=== PATIENT | male | born 1945 | race Caucasian/White ===

== ENCOUNTER 2018-07-15 20:30 | Emergency (ER) | payer MEDICARE, BC, SELFPAY ==
[2018-07-15] VITALS (34 sets, daily range): BP systolic 123–162; BP diastolic 77–105; PULSE 56–71; RESP 9–20; TEMP 36.6–36.7; O2SAT 93–100
--- NOTE | 2018-07-15 20:53 | ED.GENADUL_ITS ---
Discharge Plan Disposition Patient Disposition: HOME Condition: Stable Discharge Details Chief Complaint: Chest Pain Clinical Impression: Chest pain Reason For Visit: chest pressure Primary Care Provider: Jeremiah Sandoval ED Provider: Prieto Vasquez Home Meds and New Rx's Prescriptions: Continued atorvastatin [Lipitor] 20 MG tablet 20 mg PO DAILY RF: 0 hydrochlorothiazide 12.5 MG capsule 12.5 mg PO DAILY RF: 0 aspirin [Aspir-81] 81 MG tablet,delayed release (DR/EC) 81 mg PO HS RF: 0 pantoprazole 20 MG tablet,delayed release (DR/EC) 20 mg PO DAILY RF: 0 losartan 25 MG tablet 50 mg PO DAILY RF: 0 Lactobacillus acidophilus [Freeze Dried Acidophilus] 1 EACH capsule 1 tab PO DAILY RF: 0 Centrum Silver Men 1 EACH tablet 1 tab PO DAILY RF: 0 famotidine [Pepcid] 20 mg Tablet 20 mg PO PRN PRNRF: 0 Discharge Instructions Instructions: Chest Pain (ED) Additional Instructions: follow up with your primary care office within a week if you have worsening pain, have nausea/vomit or difficulty breathing return to the emergency department Medical Decision Making 72 yo male who comes in with chief complaint of chest burning in left chest that started around 3pm today after eating ice cream. Took pepto and feels better now. Denies any hx of heart disease, no radiation of pain or pain with exertion. HAs no leg swelling, jvd or calf pain. No tachycardia or hypoxia or findings suggestive of a DVT so doubt PE at this time. Symptoms don't seem typical of acs but given age and hx of htn/hld and former smoker will obtain ecg and troponin. No tearing back pain and normal vascular exam so doubt dissection. No cough/fever to suggest pna and normal lung sounds with no pain with deep breaths so doubt ptx and do not feel cxr indicated pt's initial labs unremarkable, remains pain free and hd stable. HAd discussion with pt about admit for observation vs second troponin and f/u with pcp and pt made informed decision of obtaining second troponin. Pt remains pain free and second troponin negative. He will f/u with pcp and return here sooner if pain worsens or if he has radiation of pain Differential Diagnosis gastritis, acs, pe, gerd Lab Data Lab results reviewed: Yes I reviewed the patient's lab results. ECG Data Attestation: I personally reviewed and interpreted this ECG (s) as follows: Prior ECG tracings: not available for review Interpretation: sinus rhythm, rate of 62, pr 178, qtc 392, no acute ischemic st t wave changes HPI General Mode of arrival: ambulatory . Date/Time Provider Initiated Documentation: 07/15/18 20:39 . Limitations to Documentation: no limitations . Information obtained by: patient . History of Present Illness 72 year old M presents to the emergency department with the chief complaint of chest pain, described as moderate, Quality is described as aching, and is localized to the chest. Patient reports no radiation. Patient started experiencing this hour(s) (5) and it has been constant. other things that improve symptom(s), (pepto) No exacerbating factors reported . Patient notes no other symptoms.. Patient did receive the following treatments prior to arrival, none Related Data Home Medications Medication Instructions Recorded Confirmed atorvastatin [Lipitor] 20 mg PO DAILY 02/26/15 07/15/18 aspirin [Aspir-81] 81 mg PO HS 06/12/16 07/15/18 Centrum Silver Men 1 tab PO DAILY 09/03/16 07/15/18 Lactobacillus acidophilus [Freeze 1 tab PO DAILY 09/03/16 07/15/18 Dried Acidophilus] losartan 50 mg PO DAILY 09/03/16 07/15/18 pantoprazole 20 mg PO DAILY 09/03/16 07/15/18 hydrochlorothiazide 12.5 mg PO DAILY 11/29/16 07/15/18 famotidine [Pepcid] 20 mg PO PRN PRN 07/15/18 07/15/18 Allergies Allergy/AdvReac Type Severity Reaction Status Date / Time lisinopril AdvReac Intermediate Other (See Verified 08/12/17 20:26 Comment) General Stated Complaint: Chest Pain ANISA: 2 Review of Systems Review of Systems All systems reviewed & are unremarkable except as noted in HPI and below Constitutional Denies chills and Denies fever(s) Eyes Denies loss of vision ENT Denies change in voice Cardiovascular Denies dyspnea Respiratory Denies dyspnea Gastrointestinal Denies abdominal pain, Denies nausea and Denies vomiting Genitourinary Denies dysuria Musculoskeletal Denies joint swelling Integumentary/Breasts Denies rash Neurologic Denies loss of vision [facility] Medical History Abdominal pain Adrenal adenoma Eczema Fatigue GERD (gastroesophageal reflux disease) HTN (hypertension) Hypercholesterolemia Rotator cuff syndrome Skin lesion of face Surgical History Colonoscopy - MAC (09/05/17) Tonsillectomy Vasectomy ruptured achilles Social History Smoking/Tobacco Use Status: Former Tobacco Use Exam Const General: no acute distress Orientation: alert HENMT Head: normal to inspection Ears: external ears normal General nose exam: external nose normal Mouth: moist mucous membranes Eyes General: appearance normal, both eyes and all related structures Neck Neck: normal visual inspection Resp Effort & Inspection: normal respiratory effort and able to speak in complete sentences Cardio Rate: regular rate Skin General skin exam: no rashes or lesions noted Neuro General: alert and oriented x3 Extrem General: normal to inspection Psych Mental Status: mental status grossly normal Course Vital Signs Temperature 36.6 C 07/15/18 20:42 Pulse 68 07/15/18 20:42 Respiratory Rate 16 07/15/18 20:42 Blood Pressure 157/96 H 07/15/18 20:42 Pulse Oximetry 99 07/15/18 20:42 Temperature 36.6 C 07/15/18 20:42 Temperature Source Temporal Artery Scan 07/15/18 20:42 Pulse 68 07/15/18 20:42 Respiratory Rate 16 07/15/18 20:42 Blood Pressure 157/96 H 07/15/18 20:42 Pulse Oximetry 99 07/15/18 20:42 Oxygen Delivery Method Room Air 07/15/18 20:42 Oxygen Flow Rate 0 07/15/18 20:42 Pain Level 4 07/15/18 20:42
[2018-07-15 21:22] LABS: Abs Immature Grans 0.03 k/cumm (0.0-0.09); Absolute Basophil Count 0.03 k/cumm (0.0-0.2); Absolute Eosinophil Count 0.29 k/cumm (0.0-0.7); Absolute Lymphocyte Count 2.32 k/cumm (1.2-3.4); Absolute Monocyte Count 0.86 k/cumm (0.11-0.7); Absolute Neutrophil Count 4.91 k/cumm (1.2-6.7); Basophils % 0.4; Eosinophils % 3.4; HCT 43.1 % (40.0-50.0); HGB 15.4 g/dL (13.5-17.5); Immature Grans % 0.4; Lymphocytes % 27.5; Mean Corp. HGB Concentration 35.7 g/dL (32.0-36.0); Mean Corpuscular Hemoglobin 32.9 pg (27.0-33.0); Mean Corpuscular Volume 92.1 fL (80-95); Mean Platelet Volume 10.4 fL (8.0-11.0); Monocytes % 10.2; Neutrophils % 58.1; Platelet Count 196 x1000/uL (130-400); RBC 4.68 m/cumm (4.50-6.00); RBC Distribution Width 12.5 % (11.8-14.1); White Blood Cell Count 8.44 k/cumm (4.4-10.8)
[2018-07-15 21:37] LABS: PTT Activated 23.6 sec (21.0-31.4); Prothrombin Time 9.8 sec (9.3-11.0)
[2018-07-15 21:39] LABS: ALT 52 U/L (12-78); AST 25 U/L (15-37); Albumin 3.7 g/dL (3.4-5.0); Alkaline Phosphatase 69 U/L (46-116); BUN 22 mg/dL (7-18); Bilirubin, Total 0.5 mg/dL (0.2-1.0); CREATININE 1.08 mg/dL (0.70-1.30); Calcium 9.3 mg/dL (8.5-10.1); Chloride 103 mmol/L (98-107); Glucose 106 mg/dL (70-100); Sodium 140 mmol/L (136-145); Total Protein 7.4 g/dL (6.4-8.2); Troponin I 0.03 ng/mL (0.00-0.06)
[2018-07-15] MEDS: Aspirin 81 MG CHEW 324 MG CH (22:07)
[2018-07-15 23:33] LABS: Troponin I < 0.02 ng/mL (0.00-0.06)
--- NOTE | 2018-07-19 09:28 | PDOC.ERCMPRO ---
Care Management Progress Note /-Dr. Vasquez requested PCP f/u appt within one week for chest pain. Dr. Sandoval PCP. [facility] faxed back, scheduled patient for 07/21/18.
--- NOTE | 2018-07-19 09:29 | CMPROGNOTE_ITS ---
Care Management Progress Note /-Dr. Vasquez requested PCP f/u appt within one week for chest pain. Dr. Sandoval PCP. [facility] faxed back, scheduled patient for 07/21/18.
== END 2018-07-15 23:56 | disposition home or self-care (01) ==
PROVIDERS: Emergency Provider Emergency Medicine; PCP Internal Medicine
DX: R07.9 Chest pain, unspecified (principal); I10 Essential (primary) hypertension
CPT/HCPCS: 36415; 80053; 93005; 99284; 83735; 84484; 85025; 85610; 85730; 93010; 99283

== ENCOUNTER 2018-07-21 18:54 | Emergency (ER) | payer MEDICARE, BC, SELFPAY ==
[2018-07-21 19:03] VITALS: BP 152/89; PULSE 68; RESP 20; TEMP 36.8; O2SAT 98
[2018-07-21 19:10] VITALS: RESP 18
--- NOTE | 2018-07-21 19:14 | DI.RAD_ITS ---
SYMPTOM/DIAGNOSIS: CHEST PAIN PA AND LATERAL CHEST: Comparison is made with 08/12/17. Heart size and pulmonary vasculature are within normal limits. The lungs are clear. No effusions or pneumothoraces are identified. No acute abnormalities are seen in the bones. IMPRESSION: No acute pulmonary process.
[2018-07-21 19:27] LABS: Abs Immature Grans 0.01 k/cumm (0.0-0.09); Absolute Basophil Count 0.02 k/cumm (0.0-0.2); Absolute Eosinophil Count 0.32 k/cumm (0.0-0.7); Absolute Lymphocyte Count 2.26 k/cumm (1.2-3.4); Absolute Monocyte Count 0.91 k/cumm (0.11-0.7); Absolute Neutrophil Count 4.06 k/cumm (1.2-6.7); Basophils % 0.3; Eosinophils % 4.2; HCT 42.1 % (40.0-50.0); HGB 15.2 g/dL (13.5-17.5); Immature Grans % 0.1; Lymphocytes % 29.8; Mean Corp. HGB Concentration 36.1 g/dL (32.0-36.0); Mean Corpuscular Volume 91.5 fL (80-95); Mean Platelet Volume 10.7 fL (8.0-11.0); Neutrophils % 53.6; Platelet Count 202 x1000/uL (130-400); RBC Distribution Width 12.3 % (11.8-14.1); White Blood Cell Count 7.58 k/cumm (4.4-10.8)
[2018-07-21 19:45] LABS: ALT 45 U/L (12-78); AST 19 U/L (15-37); Albumin 3.8 g/dL (3.4-5.0); Alkaline Phosphatase 72 U/L (46-116); Anion Gap 7.9 mmol/L (3-11); BUN 24 mg/dL (7-18); Bilirubin, Total 0.4 mg/dL (0.2-1.0); CO2 29.1 mmol/L (21.0-32.0); CREATININE 1.13 mg/dL (0.70-1.30); Calcium 9.1 mg/dL (8.5-10.1); Chloride 103 mmol/L (98-107); Glucose 97 mg/dL (70-100); NT-proBNP 49 pg/mL; Potassium 3.5 mmol/L (3.5-5.1); Sodium 140 mmol/L (136-145); Total Protein 7.7 g/dL (6.4-8.2); Troponin I < 0.02 ng/mL (0.00-0.06)
--- NOTE | 2018-07-21 19:45 | ED.GENADUL_ITS ---
Discharge Plan Disposition Patient Disposition: HOME Condition: Improving Discharge Details Chief Complaint: Chest Pain Clinical Impression: Chest pain Primary Care Provider: Jeremiah Sandoval ED Provider: Yon Sam Home Meds and New Rx's Prescriptions: Continued atorvastatin [Lipitor] 20 MG tablet 20 mg PO DAILY RF: 0 hydrochlorothiazide 12.5 MG capsule 12.5 mg PO DAILY RF: 0 aspirin [Aspir-81] 81 MG tablet,delayed release (DR/EC) 81 mg PO HS RF: 0 pantoprazole 20 MG tablet,delayed release (DR/EC) 20 mg PO DAILY RF: 0 losartan 25 MG tablet 50 mg PO DAILY RF: 0 Lactobacillus acidophilus [Freeze Dried Acidophilus] 1 EACH capsule 1 tab PO DAILY PRNRF: 0 Centrum Silver Men 1 EACH tablet 1 tab PO DAILY RF: 0 Changed famotidine [Pepcid] 20 mg Tablet 20 mg PO BID 14 Days Qty: 28 RF: 0 Discharge Instructions Instructions: Chest Pain (ED) Additional Instructions: Please follow-up with your primary care provider for reassessment and for arrangement of outpatient stress testing as previously discussed this morning at your visit. Please take the Pepcid twice daily for the next couple weeks and also see if this helps your symptoms. Feel free to return the emergency department for any new or worsening symptoms as needed. Referrals: Jeremiah Sandoval MD [Primary Care Provider] - (As previously arranged for reassessment) Medical Decision Making Patient presenting the emergency department for chief complaint of chest pain. He states this occurred after dinner while scooping some snow. He states that this did occur a couple days ago which she was seen in the emergency department and evaluated and informed to follow-up with his primary care provider. Patient was seen by primary care provider this morning and were in the process of arranging some further abdominal imaging workup along with a cardiac stress test. Patient does state that his stomach felt upset all day prior to his discomfort. He states normal bowel function, denies fever chills. Physical exam shows normal cardiac exam, no respiratory findings, and does show positive epigastric left upper quadrant tenderness. Patient did state that he took Pepcid approximately an hour prior to arrival and now has full resolution of sy mptoms. Given patient's age, high cholesterol, former smoker there is concern for cardiac source of plan to check cardiac labs EKG and chest x-ray but more suspicious of possible GI nature given upset stomach all day. Plan to perform CT with oral contrast of abdomen. Patient does state for a while now he has had episodes of severe sharp abdominal pain that is in the left upper quadrant when he gets them. Patient is otherwise stable and denies any need for pain medication at this time. Labs were reviewed and are unremarkable showing no anemia, no acute electrolyte abnormalities, nondiagnostic. Patient has negative BNP, negative initial troponin. Review of CT scan and chest x-ray show no acute findings. Patient was informed of some renal and adrenal cyst that were noted on CT scan that do not look acute. Patient was agreeable to 3-hour troponin. Patient still denies any pain or discomfort at this time. Review of second troponin is also negative for any elevation. Patient elisabeth ssessed and continues to state no no discomfort at this time. There is high consideration of this possibly being gastric ulcer versus GERD type symptoms but patient is currently on Protonix. If symptoms continue there may be consideration of upper GI study to look for esophagitis ulceration or sphincter dysfunction. given that Pepcid relieved his symptoms he was encouraged to take Pepcid twice daily for the next couple weeks to see if this helps while pending his stress testing which is already being arranged by primary care. After discussion of diagnosis and plan of care patient has no further needs, questions, or concerns and states clear understanding to return to the emergency department for any worsening symptoms. ECG Data Attestation: I personally reviewed and interpreted this ECG (s) as follows: Prior ECG tracings: available for review Interpretation: EKG reviewed with Dr. Farhana Canales. EKG shows rate of 65, sinus rhythm, normal access, no acute ischemic ST changes, no remarkable changes compared to previous EKG. HPI General Mode of arrival: ambulatory . Date/Time Provider Initiated Documentation: 07/21/18 19:12 . Limitations to Documentation: no limitations . Information obtained by: patient and RN notes reviewed . History of Present Illness 72 year old M presents to the emergency department with the chief complaint of chest pain, described as moderate, Quality is described as sharp and other (denies current pain), and is localized to the chest. Patient started experiencing this hour(s) (2) and it has been now resolved. Medication improves symptom(s), (Pepcid) Patient notes no other symptoms.. Patient did receive the following treatments prior to arrival, other (Pepcid) Related Data Home Medications Medication Instructions Recorded Confirmed atorvastatin [Lipitor] 20 mg PO DAILY 02/26/15 07/21/18 aspirin [Aspir-81] 81 mg PO HS 06/12/16 07/21/18 Centrum Silver Men 1 tab PO DAILY 09/03/16 07/21/18 Lactobacillus acidophilus [Freeze 1 tab PO DAILY PRN 09/03/16 07/21/18 Dried Acidophilus] losartan 50 mg PO DAILY 09/03/16 07/21/18 pantoprazole 20 mg PO DAILY 09/03/16 07/21/18 hydrochlorothiazide 12.5 mg PO DAILY 11/29/16 07/21/18 famotidine [Pepcid] 20 mg PO BID 14 Days #28 tab 07/21/18 Previous Rx's Medication Instructions Recorded famotidine [Pepcid] 20 mg PO BID 14 Days #28 tab 07/21/18 Allergies Allergy/AdvReac Type Severity Reaction Status Date / Time lisinopril AdvReac Intermediate Other (See Verified 07/21/18 19:08 Comment) General Stated Complaint: Chest Pain ANISA: 2 Review of Systems Constitutional Denies chills, Denies fever(s) and Denies malaise Cardiovascular Reports as per HPI, Reports chest pain, Denies chest pain with activity, Denies syncope, Denies irregular heart rhythm, Denies palpitations and Denies dyspnea Respiratory Denies dyspnea Gastrointestinal Reports abdominal pain, Denies nausea and Denies vomiting Neurologic Denies syncope Psychiatric Denies anxiety Endocrine Denies palpitations PFSH Medical History Abdominal pain Adrenal adenoma Eczema Fatigue GERD (gastroesophageal reflux disease) HTN (hypertension) Hypercholesterolemia Rotator cuff syndrome Skin lesion of face Surgical History Colonoscopy - MAC (09/05/17) Tonsillectomy Vasectomy ruptured achilles Social History Smoking/Tobacco Use Status: Former Tobacco Use Exam Const General: cooperative, healthy appearing, comfortable, no acute distress, not diaphoretic and not ill appearing Nutritional Appearance: average body habitus Orientation: alert, awake and oriented x3 Limitations: mental status not altered Neck Neck: normal visual inspection, full ROM, trachea midline, supple and no anterior neck swelling Thyroid: thyroid normal Carotids: normal carotid upstroke and no bruits Chest Chest: normal inspection of the chest Resp Effort & Inspection: normal respiratory effort and able to speak in complete sentences Auscultation: clear to auscultation bilaterally Cardio Jugular venous pressure: no JVD Palpation: normal PMI Rate: regular rate Rhythm: regular rhythm Heart Sounds: S1 normal, S2 normal, no click, no gallops, no murmurs and no rubs Bruits: no abdominal aortic bruits and no carotid bruits Pulses: radial pulses present bilaterally 2+ GI Inspection: normal to inspection Palpation: soft, no aortic enlargement, no pulsatile masses and tender in the epigastrum and in the LUQ Auscultation: normal bowel sounds Skin General skin exam: no rashes or lesions noted Neuro General: alert, awake, oriented x3, tone normal and moves all extremities Course Vital Signs Temperature 36.8 C 07/21/18 19:03 Pulse 68 07/21/18 19:03 Respiratory Rate 20 07/21/18 19:03 Blood Pressure 152/89 H 07/21/18 19:03 Pulse Oximetry 98 07/21/18 19:03 Temperature 36.8 C 07/21/18 19:03 Temperature Source Temporal Artery Scan 07/21/18 19:03 Pulse 68 07/21/18 19:03 Respiratory Rate 18 07/21/18 19:10 Respiratory Effort Non-Labored 07/21/18 19:10 Respiratory Depth Normal 07/21/18 19:10 Respiratory Pattern Normal 07/21/18 19:10 Blood Pressure 152/89 H 07/21/18 19:03 Blood Pressure Position Supine 07/21/18 19:03 Pulse Oximetry 98 07/21/18 19:03 Oxygen Delivery Method Room Air 07/21/18 19:03 Oxygen Flow Rate 0 07/21/18 19:03 Pain Level 4 07/21/18 19:10 Lab/Test Results Lab/Test Results: Laboratory Tests Range/Units 07/21/18 19:20 WBC (4.4-10.8) k/cumm 7.58 RBC (4.50-6.00) m/cumm 4.60 Hgb (13.5-17.5) g/dL 15.2 Hct (40.0-50.0) % 42.1 MCV (80-95) fL 91.5 MCH (27.0-33.0) pg 33.0 MCHC (32.0-36.0) g/dL 36.1 H RDW (11.8-14.1) % 12.3 Plt Count (130-400) x1000/uL 202 MPV (8.0-11.0) fL 10.7 Immature Gran % 0.1 Neutrophils % 53.6 Lymphocytes % 29.8 Monocytes % 12.0 Eosinophils % 4.2 Basophils % 0.3 Absolute Neutrophils (1.2-6.7) k/cumm 4.06 Absolute Lymphocytes (1.2-3.4) k/cumm 2.26 Absolute Monocytes (0.11-0.7) k/cumm 0.91 H Absolute Eosinophils (0.0-0.7) k/cumm 0.32 Absolute Basophils (0.0-0.2) k/cumm 0.02
--- NOTE | 2018-07-21 19:45 | DI.CT_ITS ---
SYMPTOM/DIAGNOSIS: ABD PAIN, EPIGASTRIC AND LUQ ABDOMEN AND PELVIC CT: Comparison is made with 08/15/17. The visualized lung bases are clear. The liver is normal in size. There are again seen several hypodense lesions within the liver. They are too small for further characterization but likely reflect small cysts. No suspicious hepatic mass is seen. The gallbladder is negative. No biliary ductal dilatation. The portal and superior mesenteric veins are patent. The pancreas, spleen and left adrenal gland are unremarkable. There is again seen a right adrenal nodule which is unchanged. The kidneys show normal and symmetric enhancement. There are bilateral renal cysts. No suspicious solid renal masses or obstruction is seen. The urinary bladder is intact. The reproductive organs are grossly unremarkable. The bowel shows no evidence of obstruction or inflammation. No findings to suggest an acute appendicitis are seen. The abdominal aorta is of normal caliber with mild atherosclerosis. No aneurysmal dilatation is present. No significant abdominal or pelvic adenopathy, ascites or pneumoperitoneum is seen. Degenerative changes are present in the spine. IMPRESSION: No evidence of an acute abdomen.
[2018-07-21 20:04] VITALS: BP 151/106; PULSE 64; RESP 16; O2SAT 96
--- NOTE | 2018-07-21 20:05 | NUR.NOTE ---
patient drinking po contrast , pain decreased and tolwerating cointrast Nursing Note:
[2018-07-21] MEDS: Omnipaque 350 MG/ML 50 ML BTL PO (21:13)
[2018-07-21] MEDS: Omnipaque 350 MG/ML 100 ML BTL IJ (21:13)
[2018-07-21] MEDS: Breeza Beverage 473 ML BTL PO (21:14)
--- NOTE | 2018-07-21 21:40 | DI.VRAD_ITS ---
EXAM: XR Chest, 2 Views EXAM DATE/TIME: 07/21/2018 9:09 PM CLINICAL HISTORY: 72 years old, male; Pain; Chest pain; Right-sided chest pain TECHNIQUE: XR of the chest, 2 views. COMPARISON: CR CHEST 2 VIEWS PA,LAT 08/12/2017 9:14 PM FINDINGS: Lungs: Unremarkable. No consolidation. Pleural space: Unremarkable. No pleural effusion. No pneumothorax. Heart/Mediastinum: Unremarkable. No cardiomegaly. Bones/joints: Osseous degenerative changes commensurate with age. No acute fracture. IMPRESSION: No acute findings. Dictated and Authenticated by: Mehul Suero MD. Ordering:CHEIKH Marvin MD
--- NOTE | 2018-07-21 21:49 | DI.VRAD_ITS ---
EXAM: CT Abdomen and Pelvis With Contrast EXAM DATE/TIME: 07/21/2018 7:46 PM CLINICAL HISTORY: 72 years old, male; Pain; Abdominal pain TECHNIQUE: Axial computed tomography images of the abdomen and pelvis with intravenous contrast. Coronal and sagittal reformatted images were created and reviewed. COMPARISON: CT ABD PELVIS WITH CONTRAST 08/15/2017 11:00 AM FINDINGS: Lower thorax: Mild dependent atelectasis in the lung bases. No focal consolidation. ABDOMEN: Liver: Likely small hepatic cysts noted. No discrete mass. Gallbladder and bile ducts: Normal. No calcified stones. No ductal dilation. Pancreas: Normal. No ductal dilation. Spleen: Normal. No splenomegaly. Adrenals: 1.9 cm slightly heterogeneously enhancing right adrenal nodule, unchanged from multiple priors, likely an adenoma. Otherwise unremarkable. Kidneys and ureters: Multiple bilateral renal cysts are noted, measuring up to 4.5 cm at the lower pole on the left. No hydronephrosis or urinary tract stones. Stomach and bowel: Normal. No obstruction. No mucosal thickening. Appendix: No evidence of appendicitis. PELVIS: Bladder: Unremarkable as visualized. Reproductive: Unremarkable as visualized. ABDOMEN and PELVIS: Intraperitoneal space: Normal. No free air. No significant fluid collection. Bones/joints: No acute fractures are seen. Old right rib fractures are noted. Mild degenerative disc are present in the spine. Soft tissues: Unremarkable. Vasculature: Moderate vascular calcifications are present. There is no abdominal aortic aneurysm. Lymph nodes: Normal. No enlarged lymph nodes. IMPRESSION: No evident acute intra-abdominal process. Stable chronic findings as above. Dictated and Authenticated by: Mehul Suero MD. Ordering:CHEIKH Marvin MD
--- NOTE | 2018-07-21 22:05 | NUR.NOTE ---
patient ambulated to restroom steadily Nursing Note:
[2018-07-21 22:08] VITALS: BP 150/97; PULSE 64; RESP 16; TEMP 36.7; O2SAT 98
[2018-07-21 22:59] LABS: Troponin I < 0.02 ng/mL (0.00-0.06)
--- NOTE | 2018-07-21 23:25 | NUR.NOTE ---
patient's IV dc'd, patient home with Nursing Note:
== END 2018-07-21 23:24 | disposition home or self-care (01) ==
PROVIDERS: Emergency Provider Nurse Practitioner Family; PCP Internal Medicine
DX: R07.9 Chest pain, unspecified (principal); I10 Essential (primary) hypertension
CPT/HCPCS: 36415; 80053; 93005; 99285; 71046; 74177; 83735; 83880; 84484; 85025; 93010; J3490; Q9967

== ENCOUNTER 2018-07-26 12:21 | Outpatient (REF) | payer MEDICARE, BC, SELFPAY ==
[2018-07-26 13:14] LABS: TSH (W/Ref FT4) 3.47 uIU/mL (0.358-3.74)
== END 2018-07-26 12:41 ==
LOC: NCHCN 12:21
PROVIDERS: PCP Internal Medicine; Visit Provider Family Medicine
DX: R53.83 Other fatigue (principal)
CPT/HCPCS: 84443

== ENCOUNTER 2018-08-01 02:47 | Outpatient (CLI) | payer MEDICARE, BC, SELFPAY ==
--- NOTE | 2018-08-01 | PFT_ITS ---
PULMONARY FUNCTION TEST REPORT Patient identification - Kobe Calvin DATE OF - 45 DATE OF SERVICE - August 01, 2018 REQUESTING PROVIDER - Letty Negrete M.D. INTERPRETATION OF STUDY Spirometry shows likely no evidence of obstructive airways disease. The pre bronchodilator effort was poor. Therefore, the results are very questionable. There was no bronchodilator response. LUNG VOLUMES - Incomplete testing. The patient was unable to carry out plethysmography maneuver. DIFFUSION CAPACITY- Normal. AIRWAY RESISTANCE - Normal. IMPRESSION Likely overall normal pulmonary function study. The prebronchodilator effort was poor and uninterpretable. The post bronchodilator spirometry is normal. Clinical correlation recommended. The patient had previous PFT done on 08/01/18, but because of the pre bronchodilator spirometry being on the more recent one, a very poor effort, true comparison is not possible. Maddi Sanderson M.D. ENOCH/emma T - 08/02/2018
[2018-08-01] MEDS: Albuterol HFA 18 GM 200 PUFF INH IH (13:52)
[2018-08-01] MEDS: Inhaler, Assist Device 1 EACH MC (13:52)
== END 2018-08-01 03:07 ==
PROVIDERS: PCP Internal Medicine; Visit Provider Urology
DX: R06.02 Shortness of breath (principal); R06.09 Other forms of dyspnea
CPT/HCPCS: 94060; 94729

== ENCOUNTER → 2018-09-01 12:36 | Outpatient (BNVA) | payer MEDICARE, BC, SELFPAY | PROVIDERS: PCP Internal Medicine; Referring Provider Internal Medicine; Visit Provider Physical Therapy Assistant | DX: K21.9 Gastro-esophageal reflux disease without esophagitis (principal) | CPT/HCPCS: 99212; 99213 ==

== ENCOUNTER 2018-10-02 06:17 | Day surgery (SDC) | payer MEDICARE, BC, SELFPAY ==
--- NOTE | 2018-09-04 06:56 | W.PM.ENDDOP ---
Date of service: 09/04/18 Endoscopy Report DATE OF PROCEDURE: 09/04/18 PRE-OP DIAGNOSIS: GERD PROCEDURE: EGD with biopsies SURGEON: Geraldine Leon ANESTHESIA: MAC COMPLICATIONS: None DISPOSITION: no change INDICATIONS: Mr. Calvin is a pleasant 72 year old male who was seen in the office for an EGD. The patient has been on omeprazole 20 mg daily for known GERD. He recently had to increase to 40 mg daily and that has helped his symptoms. Risks, benefits and complications have been reviewed. Complications include but are not limited to bleeding, pain, perforation, sore throat, aspiration, and adverse reaction to the medications. Questions were entertained and answered to their satisfaction and they wished to proceed. No guarantees were given or implied. PROCEDURE DESCRIPTION: After informed consent was obtained the patient was take to the procedure room and placed in a supine position. Monitors were applied and a time out was done. The patients name, date of , procedure type, allergies to medications and metal in their body was reviewed. A bite block was placed and the patient was sedated. Once sedated and comfortable the gastroscope was advanced through the oropharynx which was grossly normal into the esophagus. The proximal and mid-esophagus were []. In the distal esophagus there was [] noted. The scope was advanced into the stomach and through the pylorus into the 3rd portion of the duodenum. The duodenum was noted to be []. Biopsies were done []. The scope was retracted back into the stomach and biopsies were done to rule out H. pylori. There were [] ulcers. The scope was retroflexed. The cardia and fundus were noted to be normal. There [] a hiatal hernia noted. The scope was retracted back into the esophagus and biopsies were done of the GE junction to rule out Carlson's. The Z line was regular. The GE junction was at [] cm. The scope was removed and the patient was woken up and taken back to [facility] in stable condition. Follow up:
--- NOTE | 2018-09-04 07:00 | W.PM.DSUDISC ---
Discharge Plan Disposition Patient Disposition: HOME Condition: Good Discharge Details Reason For Visit: GERD Attending Provider: Geraldine Leon Primary Care Provider: Jeremiah Sandoval Home Meds and New Rx's Prescriptions: No Action famotidine [Pepcid] 20 mg tablet 40 mg PO BID RF: 0 atorvastatin [Lipitor] 20 MG tablet 20 mg PO DAILY RF: 0 hydrochlorothiazide 12.5 MG capsule 12.5 mg PO DAILY RF: 0 aspirin [Aspir-81] 81 MG tablet,delayed release (DR/EC) 81 mg PO HS RF: 0 losartan 25 MG tablet 50 mg PO DAILY RF: 0 Centrum Silver Men 1 EACH tablet 1 tab PO DAILY RF: 0 pantoprazole 20 mg tablet,delayed release (DR/EC) 40 mg PO DAILY RF: 0 Discharge Instructions Instructions: Upper Endoscopy (DC) Additional Instructions: Findings: Follow up: Please call if you develop: fevers >101.5 Nausea or Vomiting Abdominal pain that is not transient DAY SURGERY UNIT POST COLONOSCOPY INSTRUCTIONS 1. Because there will be medication in your system for the next 24 hours, you may feel a little sleepy. Your coordination will be affected. Therefore: a. Do not drive or operate dangerous equipment for 24 hours. b. Do not drink alcohol beverages for 24 hours (not even beer). c. Plan to go home and rest for the day. 2. Generally there are no restrictions on your activity after a day or so has gone by, but you may feel a bit fatigued for a few days. 3 After you arrive home you may have a light meal and return to a normal diet as you can tolerate it without feeling sick to your stomach. 4. After surgery, you may feel pain or discomfort. This should be only transient, but if it persists please contact your doctor. 5. If there are any questions regarding the findings of your procedure, please feel free to contact your doctor. 6. If you are unable to contact your doctor with a problem, contact the hospital at [phone]. 7. Continue all your regular medications unless directed otherwise. I understand the above instructions and have no questions. Signature of Patient or Responsible Adult Escort Date/Time Name of Responsible Adult Escort Signature of Nurse Date/Time Activity:: Activity as Tolerated Diet:: As Tolerated DS: Diagnosis Discharge Diagnosis (1) H/O esophagogastroduodenoscopy: Status: Chronic (2) GERD (gastroesophageal reflux disease): Status: Chronic
[2018-10-02 06:32] VITALS: BP 122/87; PULSE 58; RESP 16; TEMP 35.8; O2SAT 95
--- NOTE | 2018-10-02 06:45 | ENDO_ITS ---
Date of service: 10/02/18 Time of Service: 07:30 Endoscopy Report DATE OF PROCEDURE: 10/02/18 PRE-OP DIAGNOSIS: Hx of GERD POST-OP DIAGNOSIS: other (Duodenitis, gastritis, gastric polyps and esophagitis) PROCEDURE: EGD with biopsies SURGEON: Geraldine Leon ANESTHESIA: other (General/ ASA / Karla Guillory, DIRECTOR OF MANUFACTURING OPERATIONS) ESTIMATED BLOOD LOSS: 5 PATHOLOGY: other (duodenal bx, gastric antrum bx, gastric polyps bx, esophageal bx) COMPLICATIONS: None DISPOSITION: same day INDICATIONS: Mr. Calvin is a 72 year old with a history of GERD with breakthrough symptoms who is here for an EGD. Risks, benefits and complications have been reviewed. Complications include but are not limited to bleeding, pain, perforation, sore throat, aspiration, and adverse reaction to the medications. Questions were entertained and answered to their satisfaction and they wished to proceed. No guarantees were given or implied. PROCEDURE START TIME: 07:31 PROCEDURE END TIME: 07:41 FINDINGS: Inflammation of the duodenum, stomach and esophagus benign appearing gastric polyps in the fundus PROCEDURE DESCRIPTION: After informed consent was obtained the patient was take to the procedure room and placed in a supine position. Monitors were applied and a time out was done. The patients name, date of , procedure type, allergies to medications and metal in their body was reviewed. Fire risk was assessed. A bite block was placed and the patient was sedated. Once sedated and comfortable the gastroscope was advanced through the oropharynx which was grossly normal into the esophagus. The proximal and mid- esophagus were normal. In the distal esophagus there was some inflammation noted noted. The scope was advanced into the stomach and through the pylorus into the 3rd portion of the duodenum. The duodenum was noted to have some mild inflammation in the first portion. No ulcers were noted. Biopsies were done. The scope was retracted back into the stomach and biopsies were done to rule out H. pylori. There were no ulcers. There was moderate inflammation. The scope was retroflexed. There were a few benign appearing polyps in the cardia and fundus. Biopsies of the polyps were done. There was no hiatal hernia noted. The scope was retracted back into the esophagus and biopsies were done of the GE junction to rule out Carlson's. The Z line was irregular. The GE junction was at 42 cm. The scope was removed and the patient was woken up and taken back to [facility] in stable condition. Follow up: 2-3 weeks in the office
--- NOTE | 2018-10-02 06:46 | PDOC.DSDIS_ITS ---
Discharge Plan Disposition Patient Disposition: HOME Condition: Good Discharge Details Reason For Visit: GERD Attending Provider: Geraldine Castellanos Primary Care Provider: Jeremiah Sandoval Home Meds and New Rx's Prescriptions: New famotidine [Pepcid] 40 mg tablet 40 mg PO QHS Qty: 30 RF: 0 Continued atorvastatin [Lipitor] 20 MG tablet 20 mg PO DAILY RF: 0 hydrochlorothiazide 12.5 MG capsule 12.5 mg PO DAILY RF: 0 aspirin [Aspir-81] 81 MG tablet,delayed release (DR/EC) 81 mg PO HS RF: 0 losartan 25 MG tablet 50 mg PO DAILY RF: 0 Centrum Silver Men 1 EACH tablet 1 tab PO DAILY RF: 0 Changed pantoprazole 20 mg tablet,delayed release (DR/EC) 40 mg PO QAM Qty: 30 RF: 0 Discontinued famotidine [Pepcid] 20 mg tablet 40 mg PO BID RF: 0 Discharge Instructions Instructions: Upper Endoscopy (DC), Duodenitis (DC), Diet for Stomach Ulcers and Gastritis (GEN), Gastric Polyps (DC), Gastritis (DC), Esophagitis (DC) Additional Instructions: Findings:1. mild inflammation of the small bowel 2. moderate inflammation of the stomach and esophagus 3. Benign appearing stomach polyps Follow up: 10/17/[address] at [address] castellanos Please call if you develop: fevers >101.5 Nausea or Vomiting Abdominal pain that is not transient DAY SURGERY UNIT POST COLONOSCOPY INSTRUCTIONS 1. Because there will be medication in your system for the next 24 hours, you may feel a little sleepy. Your coordination will be affected. Therefore: a. Do not drive or operate dangerous equipment for 24 hours. b. Do not drink alcohol beverages for 24 hours (not even beer). c. Plan to go home and rest for the day. 2. Generally there are no restrictions on your activity after a day or so has gone by, but you may feel a bit fatigued for a few days. 3 After you arrive home you may have a light meal and return to a normal diet as you can tolerate it without feeling sick to your stomach. 4. After surgery, you may feel pain or discomfort. This should be only transi ent, but if it persists please contact your doctor. 5. If there are any questions regarding the findings of your procedure, please feel free to contact your doctor. 6. If you are unable to contact your doctor with a problem, contact the [facility] at [phone]. 2. Continue all your regular medications unless directed otherwise. I understand the above instructions and have no questions. Signature of Patient or Responsible Adult Escort Date/Time Name of Responsible Adult Escort Signature of Nurse Date/Time Referrals: Geraldine Castellanos MD [ [facility] STAFF PHYSICIAN] - 10/17/18 1:00 pm Activity:: Activity as Tolerated Diet:: Low acid Discharge Orders Discharge Orders: Discharge Order (Routine); Ordered 09/04/18 Ordered By: Geraldine Castellanos DS: Diagnosis Discharge Diagnosis (1) H/O esophagogastroduodenoscopy: Status: Chronic (2) Esophagitis determined by endoscopy: Status: Acute (3) Gastritis and duodenitis: Status: Acute (4) Gastric polyps: Status: Acute
[2018-10-02] MEDS: Lactated Ringers 1,000 ML 80 ML IV (06:59)
--- NOTE | 2018-10-02 07:20 | W.PM.HP.N ---
Date of service: 10/02/18 Time of Service: 07:20 Assessment and Plan (1) GERD (gastroesophageal reflux disease): Current visit: No Status: Chronic A// Severe reflux symptoms that have recently improved since the patient increased his pantoprazole to 40mg daily per his PCP. Once he has finished this prescription he will be switching to Pepcid 40 mg PO BID. He denies epigastric pain, nausea or vomiting. Denies chest pain palpitations or dyspnea. He does experience occasional dyspnea with exertion, he was recently worked up for cardiac etiologies with unremarkable results. Discussed the procedure of upper endoscopy as well as the potential risks which include bleeding, injury to the esophagus or perforation. He will be NPO starting at midnight the night before. P// Upper endoscopy Risks, benefits and complications have been reviewed. Complications include but are not limited to bleeding, pain, perforation, sore throat, aspiration, and adverse reaction to the medications. Questions were entertained and answered to their satisfaction and they wished to proceed. No guarantees were given or implied. Qualifiers: Esophagitis presence: esophagitis presence not specified Qualified Code(s): K21.9 - Gastro-esophageal reflux disease without esophagitis History of Present Illness Narrative: 72 y/o male presents with complaints of worsening heartburn. He was recently changed from 20 to 40mg PO daily, which has improved his symptoms. He denies epigastric pain, nausea or vomiting. Denies dysphagia. He describes some lower abdominal discomfort which only occurs when his cat walks across his abdomen at night. He denies use of marijuana or any other recreational drugs. Denies chest pain, palpitations or dyspnea. He reports occasional dypsnea with exertion which resolves with rest and deep breathing. [facility]. No changes in his health since he was last seen on 09/01/18 Review of Systems Cardiovascular Denies chest pain, Denies chest pain at rest, Denies chest pain with activity, Denies dyspnea and Denies dyspnea on exertion Respiratory Denies cough, Denies dyspnea and Denies dyspnea on exertion [facility] Medical History Abdominal pain Adrenal adenoma Eczema Fatigue GERD (gastroesophageal reflux disease) HTN (hypertension) Hypercholesterolemia Rotator cuff syndrome Skin lesion of face Surgical History H/O esophagogastroduodenoscopy (Chronic ~10/02/18) Colonoscopy - MAC (09/05/17) Tonsillectomy Vasectomy ruptured achilles Social History Smoking/Tobacco Use Status: Former Tobacco Use Drug use: Never Do you feel safe in your relationship?: Yes Meds Home Medications Medication Instructions Recorded Confirmed Type atorvastatin [Lipitor] 20 mg PO DAILY 02/26/15 10/02/18 History aspirin [Aspir-81] 81 mg PO HS 06/12/16 10/02/18 History Centrum Silver Men 1 tab PO DAILY 09/03/16 10/02/18 History losartan 50 mg PO DAILY 09/03/16 10/02/18 History hydrochlorothiazide 12.5 mg PO DAILY 11/29/16 10/02/18 History famotidine 20 mg tablet 40 mg PO BID tab 09/01/18 10/02/18 History pantoprazole 20 mg tablet,delayed 40 mg PO DAILY tab 09/01/18 10/02/18 History release Allergies Allergy/AdvReac Type Severity Reaction Status Date / Time lisinopril AdvReac Intermediate Other (See Verified 09/27/18 09:29 Comment) Exam Resp Effort & Inspection: normal respiratory effort Auscultation: clear to auscultation bilaterally Cardio Rate: regular rate Rhythm: regular rhythm Heart Sounds: no gallops, no murmurs and no rubs Results Last Vital Signs Temp 96.4 F L 10/02/18 06:32 Pulse 58 L 10/02/18 06:32 Resp 16 10/02/18 06:32 BP 122/87 10/02/18 06:32 Pulse Ox 95 10/02/18 06:32
--- NOTE | 2018-10-02 07:32 | BOWEL_PTH ---
PATIENT: Kobe Calvin LOC: [facility] U#:[id number] AGE/SX: 72/M ROOM: RE10/02/[address]: Geraldine Leon MD : 1945 BED: DIS: 10/02/2018 SPEC #: [id number] RECD: 10/02/18 11:22 STATUS: DOROTHY REQ #: [id number] CHICHO: 10/02/18 07:[address]: Geraldine Leon DEPT: Surgical Specimen RECD BY: Fe Guallpa ENTERED: 10/02/18 11:23 SP TYPE: Bowel OTHR DR: Jeremiah Sandoval Tissues: 1 - BIOPSY BOWEL 2 - BIOPSY BOWEL 3 - BIOPSY BOWEL 4 - BIOPSY BOWEL Procedures: GROSS AND MICRO LEVEL 4 Comments: [id number]
[2018-10-02 08:25] VITALS: BP 153/94; PULSE 64; RESP 16; TEMP 35.9; O2SAT 98
== END 2018-10-02 08:48 | disposition home or self-care (01) ==
PROVIDERS: PCP Internal Medicine; Visit Provider Surgery
PROC: 0DJ68ZZ Inspection of Stomach, Via Natural or Artificial Opening Endoscopic (ICD-10-PCS; CPT 43235; principal; 2018-10-02 07:30)
DX: K21.0 Gastro-esophageal reflux disease with esophagitis (principal); K31.89 Other diseases of stomach and duodenum; K31.7 Polyp of stomach and duodenum; I10 Essential (primary) hypertension
CPT/HCPCS: 43239; 88305; NC

== ENCOUNTER → 2018-10-17 12:42 | Outpatient (BNVA) | payer MEDICARE, BC, SELFPAY | PROVIDERS: PCP Internal Medicine; Referring Provider Internal Medicine; Visit Provider Surgery | DX: K29.90 Gastroduodenitis, unspecified, without bleeding (principal); K20.9 Esophagitis, unspecified; I10 Essential (primary) hypertension | CPT/HCPCS: 99212 ==

== ENCOUNTER 2019-09-03 12:13 | Outpatient (REF) | payer MEDICARE, BC, SELFPAY ==
[2019-09-03 21:43] LABS: Anion Gap 8.9 mmol/L (3-11); BUN 21 mg/dL (7-18); CO2 30.1 mmol/L (21.0-32.0); CREATININE 1.01 mg/dL (0.70-1.30); Calcium 9.4 mg/dL (8.5-10.1); Calculated LDL 83 mg/dL (<100); Chloride 104 mmol/L (98-107); Cholesterol 160 mg/dL (<200); Glucose 86 mg/dL (74-106); HDL Cholesterol 56 mg/dL (40-60); Potassium 4.2 mmol/L (3.5-5.1); Sodium 143 mmol/L (136-145); Triglyceride 107 mg/dL (<150)
[2019-09-05 10:09] LABS: PSA, Screening 0.7 ng/mL (0.0-6.5)
== END 2019-09-03 12:33 ==
LOC: NCHCN 12:13
PROVIDERS: PCP Internal Medicine; Visit Provider Internal Medicine
DX: I10 Essential (primary) hypertension (principal); E78.00 Pure hypercholesterolemia, unspecified; Z12.5 Encounter for screening for malignant neoplasm of prostate
CPT/HCPCS: 80048; 80061; 84153

== ENCOUNTER 2020-11-30 04:16 | Emergency (ER) | payer MEDICARE, BC, SELFPAY ==
[2020-11-30] VITALS (8 sets, daily range): BP systolic 147–172; BP diastolic 87–93; PULSE 55–62; RESP 14–16; TEMP 36.7; O2SAT 94–96
--- NOTE | 2020-11-30 04:15 | RT.EKG_ITS ---
APPROVED REPORT Exam: Resting ECG Reason for Exam: CHEST PAIN Patient Location: E HR:61 bpm ECG Measurements Heart Rate 61 AXIS KS 195 P 59 QRSd 85 QRS 13 QT 416 T 42 QTc 420 Conclusion Sinus rhythm...normal P axis, V-rate 60- 99 Probable left atrial enlargement...P >50mS, <-0.10mV V1 I have reviewed and interpreted ECG and agree with software generated interpretation.
--- NOTE | 2020-11-30 04:25 | ED.GENADUL_ITS ---
Discharge Plan Disposition Patient Disposition: HOME Condition: Good Discharge Details Clinical Impression: Arm paresthesia, left Primary Care Provider: Jeremiah Sandoval ED Provider: Bob August [place] Meds and New Rx's Prescriptions: Continued famotidine [Pepcid] 40 mg tablet 40 mg PO BID RF: 0 atorvastatin [Lipitor] 20 MG tablet 20 mg PO DAILY RF: 0 hydrochlorothiazide 12.5 MG capsule 12.5 mg PO DAILY RF: 0 losartan 25 MG tablet 50 mg PO DAILY RF: 0 Centrum Silver Men 1 EACH tablet 1 tab PO DAILY RF: 0 Discharge Instructions Additional Instructions: Your neurologic exam is intact and nonfocal. This does not appear to be stroke related given that sensation is normal. Your EKG and laboratory studies including cardiac enzyme are normal after 8 hours of symptoms. I do not have a clear explanation for the symptoms you are feeling but they do not appear to be serious. We will try Tylenol and heat over the course of the rest of the weekend. Follow-up with primary care if no improvement. Return to ED if worsening pain, neurologic changes, chest pain, shortness of breath, other concerns Referrals: Jeremiah Sandoval MD [Primary Care Provider] - Medical Decision Making Patient presenting with 8 hours of left arm numbness and discomfort. Patient is neurologically intact. Sensation to pinprick and light touch are equal in both upper extremities. There is no weakness to the left upper extremity. Pulses are intact. No tenderness. He is not experiencing any type of chest discomfort or shortness of breath. He has had some mild intermittent nausea. His EKG is sinus rhythm with no acute ST changes. This does not appear to be neurologic in nature. Doubt this is cardiac but given the intermittent nausea with the left arm numbness and discomfort for 8 hours will obtain cardiac labs. If cardiac event would expect troponin to be positive at this point this does not appear to be vascular in nature. Labs have come back unremarkable. Electrolytes are normal. Troponin is negative. At this point no great explanation as to what is causing patient's symptoms but it does not appear to be atypical cardiac presentation, no evidence of focal neurologic changes, no vascular changes, no muscle tenderness or compartment firmness. At this point would recommend some Tylenol and heat over the weekend and follow-up with primary care if not improving. Return to ED if any worsening pain, chest pain, shortness of breath, neurologic changes, other concerns Lab Data Lab results reviewed: Yes I reviewed the patient's lab results. ECG Data Attestation: I personally reviewed and interpreted this ECG (s) as follows: Prior ECG tracings: not available for review Interpretation: see EKG HPI General Mode of arrival: ambulatory . Date/Time Provider Initiated Documentation: 11/30/20 04:25 . Limitations to Documentation: no limitations . Information obtained by: patient, RN notes reviewed and old records reviewed . HPI Narrative: Patient presents to ED with left arm numbness and discomfort. Patient cannot really describe it that well. Just states that it feels very uncomfortable to him. There is no weakness or loss of sensation. He first noticed it before going to bed around 9 PM. He was able to sleep for a little while but has been up since 2 AM being uncomfortable because of the arm. He has not experienced any chest pain pressure tightness. He has no shortness of breath, diaphoresis, lightheadedness. He has had some episodes of nausea but no vomiting. He has no back or abdominal pain. He has no headache, vision change, confusion, weakness, gait disturbance. At this point he has now had symptoms for almost 8 hours Related Data Home Medications Medication Instructions Recorded Confirmed atorvastatin [Lipitor] 20 mg PO DAILY 02/26/15 11/30/20 Centrum Silver Men 1 tab PO DAILY 09/03/16 11/30/20 losartan 50 mg PO DAILY 09/03/16 11/30/20 hydrochlorothiazide 12.5 mg PO DAILY 11/29/16 11/30/20 famotidine 40 mg tablet 40 mg PO BID tab 10/17/18 11/30/20 Allergies Allergy/AdvReac Type Severity Reaction Status Date / Time lisinopril AdvReac Intermediate Other (See Verified 11/30/20 04:31 Comment) General ANISA: 2 Review of Systems Narrative: As documented in HPI otherwise negative as below. Const: no fever, chills, weakness Resp: no cough, SOB, pleuritic pain CV: no CP, diaphoresis, edema, syncope GI: no abdominal pain, nausea, vomiting, diarrhea Neuro: no headache, focal weakness, confusion PFSH Medical History Adrenal adenoma Eczema Esophagitis determined by endoscopy Fatigue Gastric polyps Gastritis and duodenitis GERD (gastroesophageal reflux disease) HTN (hypertension) Hypercholesterolemia Rotator cuff syndrome Skin lesion of face Surgical History Colonoscopy - MAC (09/05/17) H/O esophagogastroduodenoscopy (~10/02/18) ruptured achilles Tonsillectomy Vasectomy Social History Smoking/Tobacco Use Status: Former Tobacco Use Smoking risk assessment performed?: Yes Alcohol Intake: current Alcohol Intake frequency: holidays/special occasions only Drug use: Never Substance use type: does not use Do you feel safe in your relationship?: Yes Exam Narrative Exam Narrative: Const: WDWN elderly male in NAD. HEENT: NC/AT. Normal facial exam. Eyes: Normal conjunctiva and sclera. Neck: Supple. Trachea midline. Lungs: Normal respiratory effort. Lungs are clear. Cor: RRR without murmur/gallop. Good radial pulses. GI: Soft. NT/ND. Neuro: A+O x 3. Normal speech, mentation, gait. Cranial nerves II - XII grossly intact. No gross motor or sensory deficit. Light touch and pinprick sensation equal in both upper extremities Ext: No C/C/E. No tenderness to palpation throughout the left upper extremity Skin: Warm and dry without rash.
[2020-11-30 04:55] LABS: Abs Immature Grans 0.03 10^3/uL (0.0-0.06); Absolute Basophil Count 0.03 10^3/uL (0.0-0.2); Absolute Eosinophil Count 0.21 10^3/uL (0.0-0.7); Absolute Lymphocyte Count 1.74 10^3/uL (1.2-3.4); Absolute Monocyte Count 0.79 10^3/uL (0.1-0.8); Absolute Neutrophil Count 4.35 10^3/uL (1.2-6.7); Basophils % 0.4; Eosinophils % 2.9; HCT 42.9 % (40.0-50.0); HGB 15.6 g/dL (13.5-17.5); Immature Grans % 0.4; Lymphocytes % 24.3; MCH 33.8 pg (27.0-33.0); MCHC 36.4 % (32.0-36.0); MCV 92.9 fL (80-95); MPV 10.2 fL (8.0-11.0); Nucleated RBC 0 %; Platelet Count 201 10^3/uL (130-400); RBC 4.62 10^6/uL (4.36-5.78); RDW 11.8 % (11.8-14.1); RDW-SD 39.8 fL; WBC 7.15 10^3/uL (4.4-10.8)
[2020-11-30 05:11] LABS: ALT 46 U/L (16-63); AST 27 U/L (15-37); Albumin 3.7 g/dL (3.4-5.0); Alkaline Phosphatase 82 U/L (46-116); Anion Gap 7.5 mmol/L (3-11); BUN 21 mg/dL (7-18); Bilirubin, Total 0.8 mg/dL (0.2-1.0); CO2 27.5 mmol/L (21.0-32.0); Calcium 8.9 mg/dL (8.5-10.1); Chloride 107 mmol/L (98-107); Glucose 97 mg/dL (74-106); Magnesium 1.9 mg/dL (1.8-2.4); Potassium 3.9 mmol/L (3.5-5.1); Sodium 142 mmol/L (136-145); Total Protein 7.4 g/dL (6.4-8.2)
[2020-11-30 05:12] LABS: Troponin I < 0.05 ng/mL (<0.06)
== END 2020-11-30 06:05 | disposition home or self-care (01) ==
PROVIDERS: Emergency Provider Emergency Medicine; PCP Internal Medicine
DX: R20.2 Paresthesia of skin (principal); R11.0 Nausea
CPT/HCPCS: 80053; 93005; 99283; 83735; 84484; 85025; 93010

== ENCOUNTER 2021-02-26 08:29 | Outpatient (REF) | payer MEDICARE, BC, SELFPAY ==
[2021-02-26 14:30] LABS: ALT 38 U/L (16-63); AST 23 U/L (15-37); Albumin 3.7 g/dL (3.4-5.0); Alkaline Phosphatase 81 U/L (46-116); Anion Gap 9.4 mmol/L (3-11); BUN 22 mg/dL (7-18); Bilirubin, Total 0.6 mg/dL (0.2-1.0); CO2 26.6 mmol/L (21.0-32.0); CREATININE 1.1 mg/dL (0.70-1.30); Calcium 8.9 mg/dL (8.5-10.1); Calculated LDL 46 mg/dL (<100); Chloride 106 mmol/L (98-107); Cholesterol 125 mg/dL (<200); Glucose 112 mg/dL (74-106); HDL Cholesterol 45 mg/dL (40-60); Potassium 3.8 mmol/L (3.5-5.1); Sodium 142 mmol/L (136-145); Total Protein 6.8 g/dL (6.4-8.2); Triglyceride 173 mg/dL (<150)
== END 2021-02-26 08:30 | disposition home or self-care (01) ==
LOC: NCHCN 08:29
PROVIDERS: PCP Internal Medicine; Visit Provider Family Medicine
DX: I10 Essential (primary) hypertension (principal); E78.00 Pure hypercholesterolemia, unspecified
CPT/HCPCS: 80053; 80061

== ENCOUNTER 2021-08-05 01:31 | Outpatient (CLI) | payer OTHER, SELFPAY ==
[2021-08-05] MEDS: Omnipaque 350 MG/ML 50 ML BTL PO (08:07)
[2021-08-05] MEDS: Breeza Beverage 473 ML BTL PO ×2 (08:08→08:09)
[2021-08-05 08:31] LABS: CREATININE 1.2 mg/dL (0.70-1.30); Estimated GFR 59.02 (mL/min/1.73m2)
[2021-08-05] MEDS: Omnipaque 350 MG/ML 100 ML BTL IJ (09:33)
[2021-08-05] MEDS: Normal Saline Flush 10 ML SYR IVP (09:34)
--- NOTE | 2021-08-05 09:35 | DI.CT_ITS ---
Exam(s) CT ABDOMEN PELVIS W EXAM: CT ABDOMEN PELVIS W CLINICAL HISTORY: RLQ AND LLQ ABD PAIN,POOR APPETITE TECHNIQUE: COMPARISON: CT CT ABDOMEN PELVIS W from 07/21/2018 FINDINGS: CT examination of the abdomen and pelvis was performed with bolus infusion of 100 cc of Omnipaque 350 . Images obtained through the lung bases are unremarkable. There is a question of mild symmetrical wall thickening of the gastric antrum, please correlate clini char regarding the possibility of gastritis. The liver contains multiple small low-attenuation lesions consistent with cysts, unchanged from prior examinations and otherwise appears normal with no evidence of a focal mass. Spleen is unremarkable in appearance.. Gallbladder and bile ducts are unremarkable. Pancreas is unremarkable in appearance. Previously noted right adrenal nodule is again seen, measuring about 18 [address] in greatest diame ter, no change from prior studies including CT of July 2018. Kidneys contain multiple cysts, the largest about 5-6 cm in diameter of the lower pole of the left ki dney, with no evidence of a solid renal mass, hydronephrosis, or nephrolithiasis. Urinary bladder is distended but unremarkable.. There is no evidence of abdominal or pelvic adenopathy. Abdominal aorta is of normal diameter and no abnormality is seen involving major visceral branches.. Appendix is normal. No evidence diverticulitis or bowel obstruction. No significant abdominal wall hernia seen. Impression: Question of wall thickening of gastric antrum, consider gastritis. Otherwise unremarkable examinatio n.. RADIATION DOSE DELIVERED: 869.15mGy.cm Total DLP 869.15mGy.cm Total DLP 17.08mGy CTDIvol DATA REPOSITORY: All CT scans at this facility are submitted to the National Radiology Data Registry (NRDR) Dose Index Registry (DIR) with the [employer] ([employer]). RADIATION OPTIMIZATION: All CT scans at this facility use at least one of these dose optimization te chniques: automated exposure control; mA and/or kV adjustment per patient size (includes targeted exa ms where dose is matched to clinical indication); or iterative reconstruction.
== END 2021-08-05 01:51 ==
PROVIDERS: PCP Internal Medicine; Visit Provider Internal Medicine
DX: R10.31 Right lower quadrant pain (principal); R10.32 Left lower quadrant pain; R63.0 Anorexia
CPT/HCPCS: 74177; 82565; J3490; Q9967

== ENCOUNTER 2022-04-02 23:29 | Emergency (ER) | payer OTHER, SELFPAY ==
[2022-04-02 23:35] VITALS: BP 167/118; PULSE 65; RESP 18; TEMP 36.6; O2SAT 99
--- NOTE | 2022-04-02 23:45 | DI.RAD_ITS ---
Exam(s) XR CHEST 2V PA LATERAL EXAM: XR CHEST 2V PA LATERAL CLINICAL HISTORY: Chest heaviness after fiberglass exposure. TECHNIQUE: 2D digital imaging was performed. COMPARISON: CR XR CHEST 2V PA LATERAL from 07/21/2018 FINDINGS: 2 views: Heart size is normal. The mediastinum is not widened. Lungs are clear. No infiltrates nor pleural effusions. IMPRESSION: No acute pulmonary findings. DATA REPOSITORY: RADIATION DOSE DELIVERED:
--- NOTE | 2022-04-02 23:45 | RT.EKG_ITS ---
APPROVED REPORT Exam: Resting ECG Reason for Exam: Chest congestion Patient Location: E HR:64 bpm ECG Measurements Heart Rate 64 AXIS OK 201 P 69 QRSd 87 QRS 30 QT 410 T 54 QTc 422 Conclusion Sinus rhythm...normal P axis, V-rate 60- 99
--- NOTE | 2022-04-02 23:46 | ED.GENADUL_ITS ---
Discharge Plan Disposition Patient Disposition: HOME Condition: Improving Discharge Details Clinical Impression: Toxic effect of fiberglass, unintentional Primary Care Provider: Jeremiah Sandoval ED Provider: Alexys Nash Home Meds and New Rx's Prescriptions: Continued lisinopril 10 mg tablet 10 mg PO DAILY pantoprazole 40 mg tablet,delayed release (DR/EC) 40 mg PO DAILY losartan 50 mg tablet 50 mg PO DAILY atorvastatin [Lipitor] 20 MG tablet 20 mg PO DAILY hydrochlorothiazide 12.5 MG capsule 12.5 mg PO DAILY Acidophilus Capsule 4 cap PO 6XD simethicone 80 mg Tablet 80 mg PO DAILY Centrum Silver Men 1 EACH tablet 1 tab PO DAILY Discharge Instructions Additional Instructions: Return if you develop worsening discomfort, shortness of breath or wheezing. Resume normal routine and activities. Please continue to wear a mask when working with particulate matter. Return to the emergency department for any acute concerns. Resume normal medications. 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 He has not had wheezing or chest pain. He denies having a cough. Patient is well-appearing, oxygenating normally. Screening EKG performed which is unremarkable. Patient also referred for chest x-ray HPI General Mode of arrival: ambulatory . Date/Time Provider Initiated Documentation: 04/02/22 23:33 . Limitations to Documentation: no limitations . Information obtained by: patient and family . History of Present Illness 76 year old M presents to the emergency department with the chief complaint of Chest heaviness after working with fiberglass, described as moderate, and is localized to the chest. Patient reports no radiation. Patient started experiencing this hour(s) and it has been constant. No relieving factors i mprove symptom(s), No exacerbating factors reported . Patient notes denies chest pain and cough. Patient did receive the following treatments prior to arrival, none Related Data Home Medications Medication Instructions Recorded Confirmed atorvastatin 20 mg tablet (Lipitor) 20 mg PO DAILY 02/26/15 04/02/22 skzhuzio-prm-dzkss acid 300 1 tab PO DAILY 09/03/16 11/30/20 mcg-lycopene 600 mcg-lutein 300 mcg tablet (Centrum Silver Men) hydrochlorothiazide 12.5 mg capsule 12.5 mg PO DAILY 11/29/16 11/30/20 lisinopril 10 mg tablet 10 mg PO DAILY 09/10/21 losartan 50 mg tablet 50 mg PO DAILY 09/10/21 04/02/22 pantoprazole 40 mg tablet,delayed 40 mg PO DAILY 09/10/21 04/02/22 release Lactobacillus acidophilus 4 cap PO 6XD 04/02/22 04/02/22 (Acidophilus capsule) simethicone 80 mg tablet 80 mg PO DAILY 04/02/22 04/02/22 Allergies Allergy/AdvReac Type Severity Reaction Status Date / Time lisinopril AdvReac Intermediate Other (See Verified 11/30/20 04:31 Comment) General Stated Complaint: RespSymp ANISA: 3 Review of Systems Narrative: 6 systems reviewed and otherwise negative. PFSH All Active Problems (Updated 04/03/22 @ 00:51 by Alexys Nash MD) Toxic effect of fiberglass, unintentional (Acute) Chronic abdominal pain (Acute) Screening for colon cancer (Acute) Tubular adenoma of colon (Acute 09/05/17) Medical History Adrenal adenoma Arm paresthesia, left Eczema Esophagitis determined by endoscopy Fatigue Gastric polyps Gastritis and duodenitis GERD (gastroesophageal reflux disease) HTN (hypertension) Hypercholesterolemia Rotator cuff syndrome Skin lesion of face Surgical History Colonoscopy - MAC (09/05/17) H/O esophagogastroduodenoscopy (~10/02/18) ruptured achilles Tonsillectomy Vasectomy Social History Smoking/Tobacco Use Status: Former Tobacco Use Smoking risk assessment performed?: Yes Alcohol Intake: current Alcohol Intake frequency: holidays/special occasions only Drug use: Never Substance use type: does not use Do you feel safe in your relationship?: Yes Exam Narrative Exam Narrative: GEN: awake, alert, oriented 3. Pleasant, well groomed, interactive. HEAD: Normocephalic, atraumatic ENT: Mucous membranes moist, oropharynx unremarkable, External ear exam unremarkable EYES: PERRL, EOMI NECK: Full ROM, no NASH, no menigismus CHEST/RESP: Nontender, clear to auscultation bilateral, no wheeze/rhonchi/rales CARDIOVASCULAR: RRR, no murmur, rub luisito. 2+ Rad pulse bilateral ABDOMEN: Soft, nontender, no mass. +Bowel sounds EXT: Full ROM, no edema, no rash Neuro: Grossly normal neurologic exam, conversant, interactive. Psych: Speech fluent, thoughts congruent, affect normal Course Vital Signs Vital signs: Vital Signs Temperature 36.6 C 04/02/22 23:35 Pulse 65 04/02/22 23:35 Respiratory Rate 18 04/02/22 23:35 Blood Pressure 167/118 H 04/02/22 23:35 Pulse Oximetry 99 04/02/22 23:35 Temperature 36.6 C 04/02/22 23:35 Temperature Source Temporal Artery Scan 04/02/22 23:35 Pulse 65 04/02/22 23:35 Respiratory Rate 18 04/02/22 23:35 Respiratory Effort 04/02/22 23:38 Blood Pressure 167/118 H 04/02/22 23:35 Blood Pressure Position Sitting 04/02/22 23:35 Pulse Oximetry 99 04/02/22 23:35
--- OUTSIDE RECORDS SUMMARY | 2022-04-03 00:05 | XMS_ITS | Clinical Summary ---
:1945 Author Organization [facility] [place] [address] Care Team Providers Name Role Phone Jeremiah Sandoval MD Primary Care Provider Allergies No known active allergies Medications Medication Sig Dispensed Refills Start Date End Date Status lisinopril Take 10 mg by 0 Activ e (PRINIVIL;ZESTRIL) 10 mg mouth daily. Tablet chlorthalidone (HYGROTEN) Take 25 mg by 0 Active 25 mg Tablet mouth daily. pantoprazole (PROTONIX) Take 20 mg by 0 Active 20 mg Tablet, Delayed mouth daily. Release (E.C.) aspirin 81 mg Tablet, Take 81 mg by 0 Active Delayed Release (E.C.) mouth daily. atorvastatin (LIPITOR) 20 Take 20 mg by 0 Active mg Tablet mouth daily. Social History Tobacco Use Types Packs/Day Years Used Date Never Assessed Sex Assigned at Date Recorded Not on file Last Filed Vital Signs Vital Sign Reading Time Taken Comments Blood Pressure 133/87 08/08/2018 9:00 AM EST Pulse 80 08/08/2018 9:00 AM EST Temperature - - Respiratory Rate - - Oxygen Saturation - - Inhaled Oxygen Concentration - - Weight - - Height - - Body Mass Index - - Plan of Treatment Health Maintenance Due Date Last Done Comments Covid-19 Vaccine (#1) 1950 Hepatitis C Screening 12/21/1963 Tdap adult 1964 Tetanus vaccine 1964 Zoster vaccine (1 of 2) 12/21/1995 Advance Directive 2000 Pneumoccocal Vaccine: 65+ (1 - PCV) 2010 Influenza (Flu) vaccine (1 of 1 - Influenza standard 03/18/2022 series) Insurance Payer Benefit Plan Subscriber ID Effective Phone Address Typ e / Group Dates MEDICARE MEDICARE PART [id number] 2018-Pre [phone] [employer] [place] [id number] [employer] [id number] 2018-Pre [facility] sent [address] [place] [address] Care Teams Tack Cleaner Relationship Specialty Start Date End Date Jeremiah Sandoval MD PCP - General Internal Medicine 08/08/18 [address] [place] [address]
--- OUTSIDE RECORDS SUMMARY | 2022-04-03 00:05 | XMS_ITS | Encounter Summary ---
:1945 Author Organization [place] [place] [address] Care Team Providers Name Role Phone Jeremiah Sandoval MD Primary Care Provider Encounter Details Date Type Department Care Team Description 08/08/2018 Procedure visit Dermatology at [facility] Basal cell carcinoma Nathalie Sesay MD (BCC) of right ala [address] [facility] [id number] [facility] [phone] [address]-DERMATOLOGY [place] [address] Social History Tobacco Use Types Packs/Day Years Used Date Never Assessed Sex Assigned at Date Recorded Not on file documented as of this encounter Last Filed Vital Signs Vital Sign Reading Time Taken Comments Blood Pressure 133/87 08/08/2018 9:00 AM EST Pulse 80 08/08/2018 9:00 AM EST Temperature - - Respiratory Rate - - Oxygen Saturation - - Inhaled Oxygen Concentration - - Weight - - Height - - Body Mass Index - - documented in this encounter Patient Instructions Patient InstructionsBrittny Mullen RN - 08/08/2018 9:30 AM EST Your staff surgeon today was [facility] Rushing MD PhD. Instructions for the post- operative period are as below. Please keep as a reference: After Surgery 1. Avoid tobacco, smoking/vapors, cigars, and cannabis (marijuana) for at least 3 weeks after your surgery. These prevent proper healing and lead to worse scarring. Cutting back on tobacco is helpful if you cannot abstain completely. 2. Do not drink alcohol for roughly 3 days as this can slow healing or cause bleeding. 3. Do not participate in athletic activities for 1 week, unless you were told a different timeline during your visit. Athletic activity is a relative term, but this is considered to be anything that could potentially raise your heartrate or blood pressure. Elevating your heart rate and blood pressure increases the risk of swelling, bleeding, wound opening, and it could lead to worse scarring. Walkingat a leisurely pace is fine for most people, but not if you are walking for the purpose of exercise.When in doubt, take it easy or call us. 4. Do not lift anything heavier than 10 pounds for the first week unless told differently. 5. Some plush cutter may need to be delayed or delegated such as vacuuming, mowing the lawn, snow shoveling, or caring for young children that need to be carried/lifted. Working any major muscle groups increases your heart rate and can increasing bleeding. 6. Avoid swimming, hot tubs, and direct water pressure for 3 weeks after surgery. You may shower, however, once your initial bandage comes off in 48 hours. 7. Avoid antibiotic ointments such as triple antibiotic creams. 8. Whenever possible, it is helpful to take photographs with your camera or cell phone of any problems or concerns you see with your wound. We often ask for photos when you call with questions. 9. Starting 2 months following surgery, you can begin firm massage to any areas of firm scar along your incision to soften the scar and reduce bumpiness. Do this 3 times per day, 3 minutes each time. Do not start massage before 2 months. 10. Your wound will appear almost completely healed soon after sutures are removed (about 1 week), but incisions can remain bright red for several weeks. Then the scarring and healing process continuesunder the skin for 6 months until to 2 years. The scar may become less red, less firm, and more subtle during this time; please note that the rate of improvement varies depending on the person. Most redness, discoloration, bumpiness resolves by 6 months, and most patients will look presentable within a few weeks after surgery. 11. Keep your follow-up appointments and make sure to continue to have your skin checked, as often as is recommended by your track patrol, for new skin cancers. This is once per year for most patients. 12. Your can expect your scar to be red for several weeks with gradual fading of the redness. Your scar will also be raised and lumpy until the dissolvable sutures under the skin get absorbed by your body which can take 3-4 months. The scar will flatten eventually. a. If you have a skin condition called rosacea, the redness can last long-term, or you can get an increased appearance of red vessels to the skin. The appearance of vessels slightly improves, but tendsto respond well to laser treatments. 13. Occasionally, about 10-20% of the time on the face, the stitches under the skin can spit out of the incision to the surface. It can start out looking like a pimple or blemish directly on your incision. Sometimes you can feel something poking through the incision. it can look also minic a small area of infection, so please let us know before you go to another provider for antibiotics. This means that the suture may need to be trimmed or removed when you return for your wound check. This typically occurs a few weeks after surgery if it does occur. 14. To optimize your scar, and best cosmetic result, please avoid direct sunlight to your incision for the first 6 months following surgery. UV ray exposure to your incision may cause the redness to last longer, or to cause permanent darkening of your scar. You can avoid sun by covering your incision w ith a bandage when outdoors, wearing broad-rimmed hats, and wearing SPF 30 to 50 sunscreen (broad spectrum). 15. Your incision may still be healing up to 2 weeks after surgery. Because of this, avoid make-up and sunscreen until approximately 2 weeks after surgery. You can begin sooner if your skin edges look completely sealed. 16. Any time you have skin surgery or any type of surgery, you can experience mild sensation loss (numbness) in the area of surgery. Massage starting at 8 weeks after surgery can help. 17. Swelling and bruising is common, and expected, especially if your surgery site was on the forehead, cheeks, temples, nose, or eyelids. . Sometimes it can be quite profound, where the eyelids swell shut, or getting black eyes. This is especially true if you are on blood thinners such as aspirin. Swelling and bruising will peak at about 48 hours after surgery. Bruising and swelling will graduallyresolve. You can use ice packs or a bag of frozen peas for 15-20 minutes, 20 minutes off, up to 3-4 times daily to areas of swelling on the face. Use caution not to put the icy item directly onto your incision, or directly in contact with your skin as this can damage skin. Avoid prolonged use more than 20 minutes. The best way to use ice packs is over the bandage, or using a light cloth/paper towel barrier between the ice pack and your skin. You can ice for as many days as needed until swelling has resolved. Eyelid and lip swelling is typically the last type of swelling to resolve. Wound Care ??? Gently remove your initial bandage (after 48 hours from surgery). It is normal to have swelling and bruising. ??? Begin wound care as below. ??? If your initial bandage only stayed on for 24 hours (for example, falls off sooner), this is okay. Resume your wound care and bandaging instructions as below. ??? Change your bandage once a day (and whenever it becomes wet or soaks through) until your suturesare removed. If you have absorbable sutures, you do wound care for 1 week and then stop. ??? For bandage changes: o Wash hands with soap and water, or use gloves that you can purchase at a local pharmacy or drug store. o Clean the surgical area with cotton-tipped swabs or soft gauze dipped in soapy water (recommend liquid soap in clean room temperature water). Roll the cotton swab over the incision with soapy water, then with plain water, and then gently pat dry. Do not scrub the area with a washcloth. Do not put direct shower water pressure onto your wound. Do not pick off any scabs. It is okay to allow soapy water to run over your wound in the shower, however. o If you cannot remove any bloody or crusted areas, you may soak the area with wet gauze first for 15 to 20 minutes to help soften it o Pat the area dry with clean gauze or cotton swabs. Do not rub. o Use a cotton swab to apply a generous layer of petrolatum over the incision lines and any open-wound areas. o Make sure your tube or jar of petrolatum is new or unused to prevent prior contamination from entering your wound. Avoid double dipping. o After applying petrolatum, use a clean nonstick gauze or other nonstick dressing, such as Telfa. This may be purchased over the counter at a drug store. Do not use regular gauze as it will stick to your wound and can peel off healing skin with bandage changes. o Secure the bandage with paper tape or a bandage. Band-aids are okay, but typically have more adhesive that can irritate the skin compared to paper tape. This can be purchased at a drug store. o Continue this wound care daily until stitches are removed. This is typically for 5-7 days. If you had absorbable stitches used, you will do wound care for 1 week then stop. Keep in mind that if you do not want to use a bandage at all due to difficulty, allergies, irritation of skin, cost, time, or inconvenience --- you can certainly avoid bandages altogether. However, itis imperative that you continue with topical petrolatum ointment or Aquaphor (plain, fragrance-free). This may need to be applied several times daily if it gets wiped off, washed off, or dries out. Things to purchase for wound care: -Nonstick gauze -A tube or tub of petrolatum jelly (fragrance-free, no dye, not lotion) -paper tape -cotton swabs -gloves (optional) -Dial or other antibacterial liquid soap If you have specific questions or instructions, it can be written/typed by your nurse or doctor here: Antibiotics: If you were given antibiotic prescription, it is important to start them the evening of your surgerydate. However, most patients do not need antibiotics after surgery. For pain: Most patients of different ages do not require pain medications. If you do feel soreness, throbbing or sharp pains, start by taking over the counter extra strength acetaminophen (up to 3000 mg in a 24 hour period). Generally, we like you to avoid NSAIDS (non-steroid anti-inflammatory drugs such as ibuprofen) for the first 48 hours after surgery as this can increase risk of bleeding. However, if acetaminophen is not helping with pain, you can alternate acetaminophen with ibuprofen or other NSAID. Icepacks over your bandage without getting your bandage wet can also help with pain and swelling. Frozen peas work well as ice packs. THIS IS AN EXAMPLE OF A PAIN TREATMENT SCHEDULE: 1) You can take 500 mg acetaminophen one tablet by mouth at 6:00pm. This is over the counter. 2) You can take 400 mg of ibuprofen two hours later, at 8:00 pm, or other NSAID such as naproxen, aslong as it does not interact with your other medications and your other doctors have not told you toavoid this. This is over the counter. Check to see how many milligrams (mg) each of your ibuprofen tablets are. Most of the time, ibuprofen comes in 200 mg tablets, so 400 mg would mean taking two of these tablets or capsules. 3) You can take 500 mg of acetaminophen at 10:00 pm. Keep track of your total acetaminophen in a 24 hour period as your maximum should be 3000 mg total in a 24 hour period of this medication. 4) At midnight, you can take another 400 mg of ibuprofen. 5) you can continue on this schedule over the next 2 days, making sure to keep tabs of your total acetaminophen. If you are still in pain after trying the above, please call us. When to call your surgeon: ??? Fever of 100.4 degrees Fahrenheit or higher ??? Bleeding not controlled with direct firm pressure to your wound. Bleeding is most common in the first 48 hours. ??? Pain that is worsening and not relieved by over the counter medications such as acetaminophen (up to 3000 mg in a 24 hour period) ??? Wound reopening after stitching ??? Pus or bad odor from your wound ??? Worsening redness and warmth around your wound ??? If you think your surgery site is infected, please call us before seeking care or antibiotics from other providers ??? Please call us before seeking care in an emergency room or primary care. ??? If you do call, please leave your full name, phone number, date of , date of surgery, and medical record number if you have it. If after hours, please call the paper cutter operator or [phone] and ask for the track patrol on-call. If you have any non-urgent questions or concerns, please feel free to call my office or contact me through our patient portal, [employer], at [email or web address] How to contact us during business hours Dermatology at [facility] Road: Mohs scheduling or Mohs follow-up appointments: [phone] documented in this encounter Progress Notes [facility] Rushing MD - 08/08/2018 9:30 AM EST Mohs consultation and preoperative note (H&P) Patient Name: Kobe Calvin Age: 72 y.o. Date of : 1945 Today's Date: 08/08/2018 REFERRING PROVIDER: Teena Curiel CC: Mohs micrographic surgery for treatment of a cutaneous tumor HPI: Kobe Calvin is a 72 y.o. male presenting for biopsy-proven basal cell carcinoma, nodular and micronodular location on the right nasal ala. The dermatologic preoperative information sheet was reviewed with pertinent positive and negative as below. DERMATOLOGIC PRE-OPERATIVE EVALUATION AND REVIEW OF SYSTEMS History of Mohs surgery? no Pacemaker/Defibrillator? no Joint replacement or other implantable devices (e.g. Cochlear implant)? If yes then when? no Do you take a blood thinner? Yes Aspirin History of organ transplant? no History of artificial valve or stroke? no History of liver disease or bleeding disorder? no Do you have any medical problems that may affect your upcoming surgery? no Do you have any concerns regarding your upcoming surgery? no We ask patients to discontinue Fish oil/Multivitamin/Vit E/?? supplements and natural medicines not prescribed by a physician 1 week prior to surgery. SOCIAL HISTORY: Makes Own Decisions Yes Hearing aid or other devices: Yes both ears Relevant travel history or future plans: none Tobacco use (amount per day, type of tobacco): yes former Do you have any physical limitations that may affect your surgery?: yes SOB upon exertion PAST MEDICAL HISTORY No past medical history on file. PAST SURGICAL HISTORY No past surgical history on file. ALLERGIES: No Known Allergies MEDICATIONS: ??? lisinopril (PRINIVIL;ZESTRIL) 10 mg Tablet ??? chlorthalidone (HYGROTEN) 25 mg Tablet ??? pantoprazole (PROTONIX) 20 mg Tablet, Delayed Release (E.C.) ??? aspirin 81 mg Tablet, Delayed Release (E.C.) ??? atorvastatin (LIPITOR) 20 mg Tablet VITAL SIGNS: BP 133/87 (BP Location (NBP): Left arm, Patient Position: Sitting, BP Cuff Sizes: Adult (25-34 cm)) Pulse 80 PHYSICAL EXAMINATION: General: patient is awake, alert, oriented and in no acute distress. Skin: Focused examination of surgical site(s) performed which shows an erythematous scar corresponding with recent biopsy site with surrounding poorly defined pearly plaque . PHYSICIAN REVIEW OF REPORTS, RECORDS, IMAGES: 1) The accompanying pathology report(s) associated with aforementioned biopsy slide(s) were/was alsoreviewed. Assessment: Kobe Calvin is a 72 y.o. male presenting for: 1. Biopsy-proven basal cell carcinoma located on the right nasal ala. Plan: 1. Findings from the biopsy report, my independent review of the histopathology from the biopsy slides, today's clinical exam, and other pertinent details were reviewed with patient today. All questions were answered. 2. Discussed treatment options based on the above findings. We recommended Mohs micrographic surgeryfor treatment of this tumor. Mohs micrographic surgery was indicated due to patient, site and/or tumor characteristics (see operative report for specific indication). 3. We discussed risks, benefits, and alternative treatment options to the Mohs micrographic surgery procedure and pertinent information including but not limited to the following: ?? Risks include bleeding, infection, scar, recurrence, incomplete tumor removal or inability to cure with surgery alone if the tumor features are more aggressive than the initial pathology indicates. Occasionally, additional adjuvant treatments may be recommended. Additional risks include large wound, prolonged wound and healing, pain, swelling, bruising, increased appearance of vessels or worseningerythema of baseline skin; more rarely risks include damage to underlying structures such as nerves,cartilage, or muscle which could lead to temporary or permanent loss of sensation or motor function. ?? Benefit is precise tumor removal ?? If reconstruction is performed, it is specific to the patient and defect. ?? Discussed that the shape, size, depth of the wound is often not known until the tumor is cleared and thus the reconstruction options are sometimes not known until after tumor clearance. Occasionally, referrals to other providers may be recommended for reconstruction based on patient preference and need. ?? Reviewed the pros and cons of common reconstructions used for this tumor type, size, and location, and that reconstruction may lead to change in appearance. ?? Natural history of scar was discussed, including that the scar will continue to mature for 1-2 years. Recommended avoidance of special ointments or scar creams, and avoidance of direct sun exposure to the scar for optimal recovery. ?? Reviewed that there are some aspects of cosmesis that are dependent on patient's characteristics such as age, skin laxity/texture factors, inflammatory skin diseases such as rosacea, prior surgery/radiation, degree of actinic damage, smoking status, strength of the patient's immune system, diligentwound care, medications, and genetics. ?? Having Mohs surgery may lead to physical limitations for optimal healing, such as restricted physical activity and heavy lifting. 4. The nature of sun-induced photo-aging and skin cancers was discussed. Recommended sun avoidance when possible, especially peak hours of sun 10 am to 2pm, protective clothing such as wide-brimmed hats and long-sleeved clothing, and the use of SPF broad-spectrum sunscreen SPF 50 or higher. 5. Signs and symptoms of skin cancer reviewed. Patient to report any new, changing, or symptomatic lesions and follow up with his or her track patrol or other skin provider. 6. Discussed avoiding direct sun exposure to scars for best cosmetic result. Summary of Procedure(s): 1. Please see operative report for complete details. Briefly, the tumor cleared in 1 stage(s). The final defect was repaired by an intermediate linear closure. All absorbable sutures were used and the patient can return as needed. The patient was asked to call with any issues and is aware that I am available 07/02 should questions arise. [facility] Rushing MD PhD Mohs Micrographic Surgery and Dermatologic Oncology Section of Dermatology, Department of Surgery [facility] Rushing MD - 08/08/2018 9:30 AM EST Mohs micrographic Surgery Operative Report Patient name: Kobe Calvin : 1945 Date: 08/08/2018 Staff Surgeon: [facility] Rushing MD PhD Nursing/Whiting Can Worker(s):Assistants: Dasia Mcqueen LPN, Brittny Mullen RN, Concepcion Ventura LPN, Jazmyne Nevarez CMA, Yohana Johns Verenice FULL DECATOR OPERATOR; Jaycee Coleman [facility] Corrective Therapy Aide Teacher (s): Anika Ramirez Amanda Isenor Pre-operative diagnosis: Basal Cell Carcinoma Post-operative diagnosis: Basal Cell Carcinoma Location/Site: Nasal ala Procedure: Mohs micrographic surgery Indication(s) for Mohs micrographic surgery: Anatomic location for tissue conservation Stages: 1 Preoperative size of tumor: 0.9 x 0.6 cm Stage I The nature and purpose of the procedure, associated risks, possible consequences and complications,and alternative forms of treatment were explained in detail. We reviewed the possible repairs based on the clinical appearance of tumor but discussed that often the repair options may not be known until the tumor has magaly extirpated. Informed consent and permission to take photographs were obtained. The site was confirmed with the patient/authorized sales representative rural power/referring physician and/or a photograph form time of biopsy. A pre-operative time-out (procedural pause) was conducted with no unresolved d iscrepancies noted. Local anesthesia was obtained with 1% lidocaine with 1:100,000 epinephrine. The surgical site was prepped and draped in the usual sterile manner. With all visible gross tumor completely excised, the borders of the tumor and 2-3 mm margins were excised as a complete layer. Hemostasis was achieved by electrocoagulation. The excised tissue was oriented and divided into 2 sections, chromacoded, and submitted for frozen sections. The patient tolerated the procedure well and without complications. On microscopic evaluation of the frozen sections, no residual tumor was identified on the deep or outer border of the sections. The final size of the defect after complete tumor removal was 1.0 x 0.8 cm, extending to level of fibrofatty tissue. Lenin Rushing MD PhD Mohs Micrographic Surgery and Dermatologic Oncology Section of Dermatology, Department of Surgery Repair Operative Report Clinical Diagnosis: 1.0 x 0.8 cm surgical defect secondary to Mohs microscopically controlled excision Location/Site: Nasal ala Indication: repair of wound for anatomic/functional adventist Procedure: Intermediate linear closure of Mohs defect Due to the size and location of the defect resulting from the complete removal of the tumor, the postoperative risk of hemorrhage, infection, and the possibility of serious deformity from scarring, and in order to restore proper function and prevent loss of function, the defect was closed in the following manner. The nature and purpose of the procedure, associated risks, possible consequences, complications andalternative methods of treatment were explained to the patient in detail. An informed consent was obtained. The operative site was anesthetized with 1% lidocaine with 1:100,000 epinephrine. The site was prepped and draped in the usual sterile manner. Moderate undermining of the surrounding tissue was performed for tension free closure as necessary and redundant tissue excised. The deep tissues were apposed and sutured with 5-0 Monocryl sutures and the epidermal edges were approximated with 6-0 Fast A bsorbing Gut running and/or interrupted sutures. .The resulting intermediate linear closure measured1.5 cm. The surgical site was cleaned and white petrolatum with a pressure dressing was applied. The patient tolerated the procedure well and without complications and was given both verbal and written instruction on postoperative wound care. Follow up as needed. The patient was discharged in good condition. Total local anesthesia with 1% lidocaine with 1:100,000 epinephrine used: 2.5 cc Total local with 0.25% bupivacaine used: 1.5 cc Lenin Rushing MD PhD Mohs Micrographic Surgery and Dermatologic Oncology Section of Dermatology, Department of Surgery documented in this encounter Plan of Treatment Not on filedocumented as of this encounter Visit Diagnoses Diagnosis Basal cell carcinoma (BCC) of right ala nasi documented in this encounter Care Teams Fuel Oil Clerk Relationship Specialty Start Date End Date Jeremiah Sandoval MD PCP - General Internal Medicine 08/08/18 [address] [place] [address] documented as of this encounter
--- OUTSIDE RECORDS SUMMARY | 2022-04-03 00:05 | XMS_ITS | Encounter Summary ---
:1945 [address] Organization [facility] [place] [address] Care Team Providers Name Role Phone Nestor Garcia MD, Kobe Primary Care Provider Reason for Visit Reason Onset Date Comments Pre Procedure Call 08/07/2018 Encounter Details Date Type Department Care Team Description 08/07/2018 Telephone Dermatology at [facility] Dasia Mcqueen, Pre Procedure Call [address] [place] [address] Social History Tobacco Use Types Packs/Day Years Used Date Never Assessed Sex Assigned at Date Recorded Not on file documented as of this encounter Miscellaneous Notes Telephone Encounter - Dasia Mcqueen LPN - 08/07/2018 4:54 PM EST Mohs consultation and preoperative note (H&P) Patient Name: Kobe Calvin Age: 72 y.o. Date of : 1945 Today's Date: 08/07/2018 REFERRING PROVIDER: Teena Curiel CC: Mohs micrographic [...] (E.C.) ??? atorvastatin (LIPITOR) 20 mg Tablet documented in this encounter Plan of Treatment Not on filedocumented as of this encounter Visit Diagnoses Not on filedocumented in this encounter Care Teams [employer] Relationship Specialty Start Date End Date Kobe Baez MD PCP - General 06/09/10 08/07/18 [address] [place] [address] documented as of this encounter
--- NOTE | 2022-04-03 00:49 | DI.VRAD_ITS ---
PROCEDURE INFORMATION: Exam: XR Chest Exam date and time: 04/02/2022 11:55 PM Age: 76 years old Clinical indication: Other: Chest heaviness after fiberglass exposure TECHNIQUE: Imaging protocol: Radiologic exam of the chest. Views: 2 views. COMPARISON: CR XR CHEST 2V PA LATERAL 07/21/2018 9:04 PM FINDINGS: Lungs: Lungs are adequately inflated. No focal consolidation or pulmonary edema. Pleural spaces: No pleural effusion. No pneumothorax. Heart/Mediastinum: Cardiomediastinal contours within normal limits. Diaphragm: Mild asymmetric elevation of the right hemidiaphragm, similar to prior. Bones/joints: Mild thoracic spondylosis. No acute osseous finding. Symmetric degenerative changes of the AC joints. IMPRESSION: No acute findings. Dictated and Authenticated by: Taiwo Sam MD. Ordering:ABENA Reardon MD
[2022-04-03 00:59] VITALS: BP 132/76; PULSE 62; RESP 18; O2SAT 98
== END 2022-04-03 01:00 | disposition home or self-care (01) ==
PROVIDERS: Emergency Provider Emergency Medicine; PCP Internal Medicine
DX: T65.831A Toxic effect of fiberglass, accidental (unintentional), initial encounter (principal); R07.89 Other chest pain; I10 Essential (primary) hypertension; Z87.891 Personal history of nicotine dependence
CPT/HCPCS: 93005; 99283; 71046; 93010; 99284

== ENCOUNTER 2022-05-10 07:57 | Day surgery (SDC) | payer OTHER, SELFPAY ==
--- NOTE | 2022-05-10 06:38 | W.COLOREPORT ---
Date of service: 05/10/22 Time of Service: 09:50 Colonoscopy Report Date of procedure: 05/10/22 Pre-op diagnosis general: colon cancer screening Post-op diagnosis procedure note: other (polyps) Procedure: Colonoscopy with polypectomy Surgeon: Geraldine Leon Anesthesia Type: General:No Airway Estimated blood loss (mL): 3 Pathology: other (ascending, transverse, sigmoid and rectal polyps) Complications: None Disposition: same day Indications: The patient? is a pleasant? 76-year-old male who is here to discuss another screening colonoscopy. ? HIs last colonoscopy was in 2018 and he had a tubular adenoma.? He denies any changes in bowel habits, melena, hematochezia, unintentional weight loss or family history of colon cancer.? The procedure and risks were discussed.? The prep was reviewed in detail.? Risks, benefits and complications have been reviewed. Complications include but are not limited to bleeding, pain, perforation, missed small lesion/polyp, sore throat, aspiration and adverse reaction to the medications. Questions were entertained and answered to their satisfaction and they wished to proceed. No guarantees were given or implied. Prep: Miralax/Dulcolax Procedure Start Time: 09:50 Procedure End Time: 10:19 Retraction Time: 20 minutes Findings: multiple polyps Procedure Description: After informed consent was obtained the patient was taken to the procedure room and placed in a left decubitous position. Monitors were applied and a time out was done. The patients name, date of , procedure, allergies to medications and metal in their body was reviewed. The patient was then sedated. Once sedated and comfortable a rectal exam was done. External exam was normal. Internal exam revealed a normal sphincter tone and no palpable masses. The prostate felt smooth. The scope was then introduced and retro-flexed. no internal hemorrhoids, polyps or masses were identified on retro-flexion. The scope was then advanced to the cecum without difficulty. The ileocecal vlave and appendiceal orifice were identified. The prep was adequate. The scope was then slowly retracted over 20 minutes back into the rectum. Polyps were removed with cold forceps in the ascending colon and with cold forceps in the transverse, sigmoid colon and rectum x3. There was no diverticulosis noted. The scope was removed and the patient was woken up and taken back to Same day surgery in stable condition. The patient tolerated the procedure well and there were no immediate complications.
--- NOTE | 2022-05-10 06:38 | W.PM.DSUDISC ---
Date of service: 05/10/22 Time of Service: 09:50 Discharge Plan Disposition Patient Disposition: HOME Condition: Good Discharge Details Reason For Visit: colonoscopy Attending Provider: Geraldine Leon Primary Care Provider: Jeremiah Sandoval Home Meds and New Rx's Prescriptions: Continued pantoprazole 40 mg tablet,delayed release (DR/EC) 40 mg PO DAILY losartan 50 mg tablet 50 mg PO DAILY atorvastatin [Lipitor] 20 MG tablet 20 mg PO DAILY Acidophilus Capsule 4 cap PO 6XD simethicone 80 mg Tablet 80 mg PO PRN PRN Centrum Silver Men 1 EACH tablet 1 tab PO DAILY Discontinued polyethylene glycol 3350 17 gram/dose powder 238 g PO ONCE Qty: 238 0RF Rx Instructions: take per colonoscopy instructions bisacodyl [Dulcolax (bisacodyl)] 5 mg tablet,delayed release (DR/EC) 5 mg PO ONCE Qty: 4 0RF Rx Instructions: take per colonoscopy instructions Discharge Instructions Instructions: Colorectal Polyps (DC) Additional Instructions: Findings: polyps x6 Follow up: 3-5 years Please call if you develop: fevers >101.5 Nausea or Vomiting Abdominal pain that is not transient Rectal bleeding that is more then a tbsp A hard abdomen and inability to pass gas DAY SURGERY UNIT POST ENDOSCOPY INSTRUCTIONS Instructions for everyone who is given Anesthesia: For your safety, please do the following for the next 24 Hours: a. Do not drive or operate dangerous equipment b. Do not drink alcohol beverages or use any recreational drugs for the first 24 hours or while taking pain medications. The medications in your body may have a reaction that can be dangerous. c. Do not make any important decisions or sign any important papers 1. Generally there are no restrictions on your activity after a day or so has gone by, but you may feel a bit fatigued for a few days. 2. After you arrive home you may have a light meal and return to a normal diet as you can tolerate it without feeling sick to your stomach. 3. After surgery, you may feel pain or discomfort. This should be only transient, but if it persists please contact your doctor. 4. If there are any questions regarding the findings of your procedure, please feel free to contact your doctor. 6. If you are unable to contact your doctor with a problem, contact the hospital at [phone]. 7. Continue all your regular medications unless directed otherwise. I understand the above instructions and have no questions. Signature of Patient or Responsible Adult Escort Date/Time Name of Responsible Adult Escort Signature of Nurse Date/Time Activity:: Activity as Tolerated Diet:: As Tolerated Discharge Orders Discharge Orders: Discharge Order (Routine); Ordered 05/10/22 Ordered By: Geraldine Leon
[2022-05-10 08:40] VITALS: BP 138/94; PULSE 71; RESP 20; TEMP 36.6; O2SAT 97
--- NOTE | 2022-05-10 08:48 | ANES.PREOP_ITS ---
General Info Date of Service Date Performed: 05/10/22 Height: 5 ft 8 in Weight: 80 kg Body Mass Index (BMI): 26.8 Surgical Procedure: Operation Date: 05/10/22 10:05 Proposed Procedure Side Surgeon p Colonoscopy Geraldine Leon MD Meds Allergies and Home Medications Allergies Allergy/AdvReac Type Severity Reaction Status Date / Time lisinopril AdvReac Intermediate Other (See Verified 05/10/22 08:39 Comment) Home Medication Medication Instructions Recorded atorvastatin 20 mg tablet (Lipitor) 20 mg PO DAILY 02/26/15 jltntxer-fql-ivjdq acid 300 1 tab PO DAILY 09/03/16 mcg-lycopene 600 mcg-lutein 300 mcg tablet (Centrum Silver Men) losartan 50 mg tablet 50 mg PO DAILY 09/10/21 pantoprazole 40 mg tablet,delayed 40 mg PO DAILY 09/10/21 release Lactobacillus acidophilus 4 cap PO 6XD 04/02/22 (Acidophilus capsule) simethicone 80 mg tablet 80 mg PO PRN PRN 04/02/22 bisacodyl 5 mg tablet,delayed 5 mg PO ONCE colonscopy bowel prep 05/05/22 release (Dulcolax (bisacodyl)) #4 tabs polyethylene glycol 3350 17 238 g PO ONCE colonoscopy prep 05/05/22 gram/dose oral powder #238 grams Current Visit Medications: Current Medications Generic Name Dose Route Start Last Admin Trade Name Freq PRN Reason Stop Dose Admin Hyoscyamine Sulfate 0.125 mg 05/10/22 06:39 Hyoscyamine 0.125 Mg Sl/Oral/Chew SL DIRECTED PRN Ringer's Solution 1,000 mls @ 80 mls/hr 05/10/22 06:00 IV 06/06/22 23:59 INF[facility]ION [facility] IV Miscellaneous Supplies 1 each 05/10/22 06:00 Iv Access IV 06/06/22 23:59 DIRECTED ADRIANE Ondansetron HCl 4 mg 05/10/22 06:39 Ondansetron 4 Mg/2 Ml Vial IVP Q4H PRN PRN Nausea / Vomiting Sodium Chloride 0 ml 05/10/22 06:00 Normal Saline Flush 10 Ml Syr IV 06/06/22 23:59 PRN PRN Sodium Chloride 0 ml 05/10/22 06:00 Normal Saline 10 Ml Vial IJ 06/06/22 23:59 DIRECTED PRN Sterile Water 0 ml 05/10/22 06:00 Water,Injection,Sterile 10 Ml Vial IJ 06/06/22 23:59 DIRECTED PRN PFSH Active Problems Active Problems: Problem Status Onset Code Chronic abdominal pain R10.9, G89.29 Screening for colon cancer Z12.11 Tubular adenoma of colon 09/05/17 D12.6 Medical History Medical History Adrenal adenoma Arm paresthesia, left Eczema Esophagitis determined by endoscopy Fatigue Gastric polyps Gastritis and duodenitis GERD (gastroesophageal reflux disease) HTN (hypertension) Hypercholesterolemia Rotator cuff syndrome Skin lesion of face Surgical History Surgical History Colonoscopy - MAC (09/05/17) H/O esophagogastroduodenoscopy (~10/02/18) ruptured achilles Tonsillectomy Vasectomy Tobacco Smoking/Tobacco Use Status: Former Tobacco Use Alcohol Alcohol Intake: former Substance Use Substance use: Never Substance use type: does not use Vital Signs and Lab Results Vital Signs Most Recent Vital Signs in EMR: Most Recent Vital Signs Temp Pulse Resp BP Pulse Ox 36.6 C 71 20 138/94 H 97 05/10/22 08:40 05/10/22 08:40 05/10/22 08:40 05/10/22 08:40 05/10/22 08:40 Lab Results Blood Type / Crossmatch: No Data to Display Complete Blood Count: No Data to Display Complete Metabolic Panel: No Data to Display Liver Function Panel: No Data to Display Coagulation Panel: No Data to Display Cardiac Panel: No Data to Display Arterial Blood Gas: No Data to Display Venous Blood Gas: No Data to Display Pancreas Panel: No Data to Display Thyroid Panel: No Data to Display Infectious Disease: No Data to Display Blood Cultures: No Data to Display Toxicology Panel: No Data to Display Imaging and Studies Imaging and Studies Study information below may be from another EMR and interpreted by another provider. Please see original notes in EMR for more complete details. EKG Summary: 04/08: sinus Carotid Artery Summary:: 01/2014: no hemodynamically sig cervical artery stenosis. Pulmonary Function Summary: 2019: normal study. Anesthesia Assessment and Plan Anesthesia History Personal History: No History of Anesthesia Complications Family History: No Family History of Anesthesia Complications Exercise Tolerance Exercise Tolerance: Metabolic Equivalents>4 Pertinent Negatives Pertinent Negatives: No Major Cardiovascular Symptoms or Complaints Cardiac & Pulmonary Exam Cardiac Exam: Normal S1/S2 Heart Sounds Pulmonary Exam: Clear Bilateral Breath Sounds Implantable Cardiac Device Does patient have a Pacemaker or an ICD?: No Airway Exam Known Difficult Airway: No Mallampati Class: 3 Mouth Opening: Normal (> 3cm) Thyromental Distance: Greater than 3 cm Neck Range of Motion: Full ROM Neck Circumference: Normal Teeth Condition: Edentulous ASA Classification ASA Score: ASA 2 Emergency Case?: No NPO Status NPO Status: NPO Clears >2 hours, Solids >8 hours Anesthesia Plan Resuscitation Status: Full Code Anesthesia Technique: General Anesthesia Airway Planned: Natural Airway Monitors Used: Standard Monitors Preoperative Comments:: 76 yo male with chronic abd pain, history of tubular adenoma for colo. Sig PMHx: GERD, HTN, adrenal adenoma, former smoker/EtOH. Previous [place]: prop 70/150 no issues.
[2022-05-10] MEDS: Lactated Ringers 1,000 ML 80 ML IV (08:55)
[2022-05-10 09:38] VITALS: BMI 26.8
--- NOTE | 2022-05-10 10:00 | BOWEL_PTH ---
PATIENT: Kobe Calvin LOC: [facility] U#:[id number] AGE/SX: 76/M ROOM: RE05/10/[address]: Geraldine Leon MD : 1945 BED: DIS: 05/10/2022 SPEC #: [id number] RECD: 05/10/22 12:29 STATUS: DOROTHY REQ #: [id number] CHICHO: 05/10/22 10:[address]: Geraldine Leon DEPT: Surgical Specimen RECD BY: Kelly Loving ENTERED: 05/10/22 12:31 SP TYPE: Bowel OTHR DR: Jeremiah Sandvoal Tissues: 1 - BIOPSY BOWEL 2 - BIOPSY BOWEL 3 - BIOPSY BOWEL 4 - BIOPSY BOWEL Procedures: GROSS AND MICRO LEVEL 4 Comments: [id number]
[2022-05-10 10:25] VITALS: BP 117/89; PULSE 64; RESP 18; TEMP 36.5; O2SAT 97
[2022-05-10 10:51] VITALS: BP 159/103; PULSE 63; RESP 18; TEMP 36.5; O2SAT 97
--- NOTE | 2022-05-10 11:49 | W.ANESPOSTOP ---
Postoperative Evaluation Date, Time and Location Date Performed: 05/10/22 Time Performed: 11:49 Patient Location: Day Surgery Unit Vital Signs Most Recent Imported Vital Signs: Most Recent Vital Signs Temp Pulse Resp BP Pulse Ox 36.5 C 63 18 159/103 H 97 05/10/22 10:51 05/10/22 10:51 05/10/22 10:51 05/10/22 10:51 05/10/22 10:51 Pain Score Most Recent Pain Score: Most Recent Pain Score Pain Level 0 05/10/22 08:40 Assessment Mental Status: Awake (Alert & Oriented to Patient Baseline) Airway and Respiratory Function: Patent airway with normal (patient baseline) respiratory exam Cardiovascular Function: Hemodynamically Stable Hydration Status: Adequately Hydrated Nausea & Vomiting: No Nausea or Vomiting Pain: Pt. Denies Any Pain Peripheral Nerve Block: Patient did not receive a nerve block
== END 2022-05-10 10:03 | disposition home or self-care (01) ==
PROVIDERS: PCP Internal Medicine; Visit Provider Surgery
PROC: 0DJD8ZZ Inspection of Lower Intestinal Tract, Via Natural or Artificial Opening Endoscopic (ICD-10-PCS; CPT 45378; principal; 2022-05-10 10:00)
DX: Z12.11 Encounter for screening for malignant neoplasm of colon (principal); K63.5 Polyp of colon; Z86.010 Personal history of colon polyps; K62.1 Rectal polyp
CPT/HCPCS: 45380; 88305

== ENCOUNTER 2022-07-22 22:53 | Emergency (ER) | payer OTHER, SELFPAY ==
[2022-07-22] VITALS (46 sets, daily range): BP systolic 152–198; BP diastolic 94–103; PULSE 61–73; RESP 13–24; TEMP 36.8; O2SAT 98
--- NOTE | 2022-07-22 22:45 | RT.EKG_ITS ---
APPROVED REPORT Exam: Resting ECG Reason for Exam: chest pain Patient Location: E HR:63 bpm ECG Measurements Heart Rate 63 AXIS AL 177 P 70 QRSd 87 QRS 26 QT 406 T 52 QTc 417 Conclusion Sinus rhythm...normal P axis, V-rate 60- 99 Probable left atrial enlargement...P >50mS, <-0.10mV V1. Sinus. Normal axis. No STEMI. I have reviewed and interpreted ECG and agree with software generated interpretation.
--- NOTE | 2022-07-22 23:00 | DI.RAD_ITS ---
Exam(s) XR CHEST 2V PA LATERAL EXAM: XR CHEST 2V PA LATERAL CLINICAL HISTORY: chest pain, r/o pneumonia TECHNIQUE: 2D digital imaging was performed. COMPARISON: CR,XR XR CHEST 2V PA LATERAL from 04/02/2022 FINDINGS: HEART: Normal size. Aorta: Not dilated. PULMONARY VASCULATURE: Normal. LUNGS: Clear. PLEURAL SPACE: No pleural effusion or pneumothorax. BONE:Unremarkable for age. IMPRESSION: No acute abnormality. DATA REPOSITORY: RADIATION DOSE DELIVERED:
[2022-07-22 23:54] LABS: COVID-19 PCR Negative (Negative); Influenza A PCR Negative (Negative); Influenza B PCR Negative (Negative)
[2022-07-23] LABS: RSV PCR Positive (Negative); Source Nasopharynx
--- NOTE | 2022-07-23 00:05 | ED.GENADUL_ITS ---
Discharge Plan Disposition Patient Disposition: Home Condition: Stable Discharge Details Clinical Impression: RSV infection Primary Care Provider: Letty Negrete ED Provider: Farhana Canales Home Meds and New Rx's Prescriptions: New benzonatate 100 mg capsule 100 mg PO TID PRN (Reason: cough) Qty: 10 0RF Continued pantoprazole 40 mg tablet,delayed release (DR/EC) 40 mg PO DAILY losartan 50 mg tablet 50 mg PO DAILY atorvastatin [Lipitor] 20 MG tablet 20 mg PO DAILY Acidophilus Capsule 4 cap PO 6XD simethicone 80 mg Tablet 80 mg PO PRN PRN Centrum Silver Men 1 EACH tablet 1 tab PO DAILY Discharge Instructions Instructions: Respiratory Syncytial Virus (ED) Additional Instructions: You tested positive for RSV or respiratory syncytial virus. This is a virus that is usually seen in young children but has become increasingly more common in adults in the last several months. Your final chest x-ray result is pending. You will be notified if the radiologist notes any concerning findings. Drink plenty of fluids and get plenty of rest. Use the albuterol inhaler as needed and directed for cough or wheezing. A prescription for cough medication has been sent electronically to your pharmacy. Follow-up with your primary care doctor in 1 week. Return to the emergency department with any worsening or new concerning symptoms such as persistent fevers, difficulty breathing or any other concerns. Discharge Data Discharge Date/Time-TO BE ENTERED AT DEPARTURE: 07/23/22 01:20 Discharge Physician: Farhana Canales Medical Decision Making 76-year-old male with a history of hypertension, hyperlipidemia, GERD who presents from home for nasal congestion occasionally productive cough and wheezing in his left chest when he lays on his left side for the past 2 days. He denies chest pain. Blood pressure moderately hypertensive, remainder vitals within normal limits. Patient appears comfortable and nontoxic, speaking in full sentences and no signs of respiratory distress. He has clear breath sounds throughout and no wheezing noted. As he has report of infectious symptoms and appears nontoxic, do not see an indication for labs at this time. Considering his age and history, an EKG was obtained which notes a rate of 63, sinus with normal axis and no ischemic findings. Considering his report of cough, will obtain a chest x-ray to rule out pneumonia. History and presentation does not appear consistent with ACS, PE or dissection. Do not see indication for neb treatment or steroids at this time and patient is agreeable. RSV positive. Flu and COVID-negative. Chest x-ray negative for acute findings. Patient reassessed and he continues to deny chest pain or any difficulty breathing. Oxygen saturation 97% on room air. He is speaking full sentences. Has he has report of occasional wheezing, will give a dose of Decadron IV x1. Patient feels comfortable going home. We will send with 1 dose of Tessalon Perles and albuterol inhaler to go. A prescription for Tessalon Perles sent electronically to his pharmacy. Advised to follow up with the primary care doctor for re-evaluation. Usual and customary return precautions given prior to discharge. Medical Records Medical records reviewed: Yes I reviewed the patient's medical records. Imaging Data Radiologic Study: Radiologist's impression: XR Chest Exam date and time: 07/22/2022 11:57 PM Age: 76 years old Clinical indication: Chest wall pain; Additional info: Chest pain, R/O pneumonia TECHNIQUE: Imaging protocol: Radiologic exam of the chest. Views: 2 views. COMPARISON: CR XR CHEST 2V PA LATERAL 04/02/2022 11:55 PM FINDINGS: Lungs: Unremarkable. No consolidation. Pleural spaces: Unremarkable. No pleural effusion. No pneumothorax. Heart/Mediastinum: Unremarkable. No cardiomegaly. Bones/joints: Unremarkable. IMPRESSION: No acute findings. Lab Data Lab results reviewed: Yes I reviewed the patient's lab results. Labs: Laboratory Tests Range/Units 07/22/22 23:15 COVID-19 Source Nasopharynx SARS-CoV-2 (PCR) (Negative) Negative Influenza Type A (PCR) (Negative) Negative Influenza Type B (PCR) (Negative) Negative RSV (PCR) (Negative) Positive A* ECG Data Attestation: I personally reviewed and interpreted this ECG (s) as follows: Interpretation: Rate of 63, sinus, normal axis, LVH, no STEMI. HPI General Mode of arrival: ambulatory . Date/Time Provider Initiated Documentation: 07/22/22 22:55 . Limitations to Documentation: no limitations . Information obtained by: patient . HPI Narrative: Patient is a 76-year-old male with a history of hypertension, hyperlipidemia, GERD, and arthritis who presents with 2 days of nasal congestion and cough that is occasionally productive of yellow sputum. Patient states when he lays on his left side he feels like he hears wheezing or a rumbly sound in his left chest. He states he has been eating normally and denies any fever, ear pain, sore throat, chest pain, difficulty breathing, abdominal pain, nausea, vomiting or diarrhea. Related Data Home Medications Medication Instructions Recorded Confirmed atorvastatin 20 mg tablet (Lipitor) 20 mg PO DAILY 02/26/15 05/10/22 [id number]-[id number] acid 300 1 tab PO DAILY 09/03/16 05/10/22 mcg-lycopene 600 mcg-lutein 300 mcg tablet (Centrum Silver Men) losartan 50 mg tablet 50 mg PO DAILY 09/10/21 05/10/22 pantoprazole 40 mg tablet,delayed 40 mg PO DAILY 09/10/21 05/10/22 release Lactobacillus acidophilus 4 cap PO 6XD 04/02/22 05/10/22 (Acidophilus capsule) simethicone 80 mg tablet 80 mg PO PRN PRN 04/02/22 05/10/22 benzonatate 100 mg capsule 100 mg PO TID PRN cough #10 caps 07/23/22 Previous Rx's Medication Instructions Recorded benzonatate 100 mg capsule 100 mg PO TID PRN cough #10 caps 07/23/22 Allergies Allergy/AdvReac Type Severity Reaction Status Date / Time lisinopril AdvReac Intermediate Other (See Verified 05/10/22 08:39 Comment) General Stated Complaint: Chest Pain ANISA: 3 Review of Systems All systems reviewed & are unremarkable except as noted in HPI and below Constitutional Constitutional: Reports as per HPI, Denies chills and Denies fever(s) Eyes Eyes: Denies blurry vision ENT Ears, Nose, Mouth, and Throat: Denies dizziness, Reports nasal congestion, Denies sore throat and Denies throat swelling Cardiovascular Cardiovascular: Denies chest pain and Denies dyspnea Respiratory Respiratory: Reports cough and Denies dyspnea Gastrointestinal Gastrointestinal: Denies abdominal pain, Denies diarrhea and Denies vomiting Genitourinary Genitourinary: Denies hematuria and Denies dysuria Musculoskeletal Musculoskeletal: Denies back pain and Denies numbness Integumentary/Breasts Skin/Breast: Denies lesions and Denies rash Neurologic Neurologic: Denies dizziness, Denies localized weakness and Denies numbness Allergic/Immunologic Allergic/Immunologic: Denies throat swelling PFSH All Active Problems (Updated 07/23/22 @ 00:45 by Farhana Canales DO) RSV infection (Acute) Chronic abdominal pain (Acute) Screening for colon cancer (Acute) Tubular adenoma of colon (Acute 09/05/17) Medical History (Updated 07/23/22 @ 00:45 by Farhana Canales DO) Adrenal adenoma Arm paresthesia, left Eczema Esophagitis determined by endoscopy Fatigue Gastric polyps Gastritis and duodenitis GERD (gastroesophageal reflux disease) HTN (hypertension) Hypercholesterolemia Rotator cuff syndrome Skin lesion of face Surgical History (Updated 05/20/22 @ 08:40 by Brenda Lorenzo RN) Colonoscopy - MAC (09/05/17) 04/2022 H/O esophagogastroduodenoscopy (~10/02/18) ruptured achilles Tonsillectomy Vasectomy Social History Smoking/Tobacco Use Status: Former Tobacco Use Smoking risk assessment performed?: Yes Alcohol Intake: former Drug use: Never Substance use type: does not use Details: Patient reports sniffles this AM no other smptoms. Do you feel safe at home: Yes Do you feel safe in your relationship?: Yes Exam Const General: cooperative, healthy appearing and no acute distress HENMT Head: normal to inspection Ears: hearing grossly normal bilaterally, external ears normal and TM's normal bilaterally Face and sinus: normal facial exam Mouth: oral mucosae normal Throat: posterior oropharynx normal Eyes General: appearance normal, both eyes and all related structures Pupils: PERRL EOM: EOM intact bilaterally Neck Neck: normal visual inspection and No submandibular swelling Lymphatic: no lymphadenopathy noted Chest Chest: normal inspection of the chest and no tenderness Resp Effort & Inspection: normal respiratory effort and able to speak in complete sentences Auscultation: clear to auscultation bilaterally, no rhonchi and no wheezes Cardio Rate: regular rate Rhythm: regular rhythm GI Inspection: normal to inspection Palpation: soft, not firm, not rigid and nontender Auscultation: hypoactive bowel sounds Skin General skin exam: no rashes or lesions noted Neuro General: patient alert, patient awake and patient oriented x3 Cognition: normal cognition Speech: speech normal Motor: muscle tone normal throughout Sensory Exam: no sensory deficits noted Extrem General: normal to inspection, full ROM, capillary refill normal, no calf tenderness bilaterally and no edema Psych Appearance: grossly normal Mental Status: mental status grossly normal Speech and Movement: speech and movement normal Affect: normal affect Course Vital Signs Vital signs: Vital Signs Temperature 98.2 F 07/22/22 22:59 Pulse 71 07/22/22 22:59 Respiratory Rate 20 07/22/22 22:59 Blood Pressure 198/103 H 07/22/22 22:59 Pulse Oximetry 98 07/22/22 22:59 Temperature 98.2 F 07/22/22 22:59 Temperature Source Temporal Artery Scan 07/22/22 22:59 Pulse 62 07/22/22 23:46 Respiratory Rate 22 07/22/22 23:46 Respiratory Effort 07/22/22 23:07 Respiratory Depth Normal 07/22/22 23:07 Respiratory Pattern Normal 07/22/22 23:07 Blood Pressure 161/97 H 07/22/22 23:46 Blood Pressure Position Sitting 07/22/22 22:59 Pulse Oximetry 98 07/22/22 22:59 Oxygen Delivery Method Room Air 07/22/22 22:59 Oxygen Flow Rate 0 07/22/22 22:59 Lab/Test Results Lab/Test Results: Laboratory Tests Range/Units 07/22/22 23:15 COVID-19 Source Nasopharynx SARS-CoV-2 (PCR) (Negative) Negative Influenza Type A (PCR) (Negative) Negative Influenza Type B (PCR) (Negative) Negative RSV (PCR) (Negative) Positive A*
[2022-07-23] MEDS: Dexamethasone 10 MG/ML VIAL IVP (00:58)
[2022-07-23] MEDS: Albuterol HFA 8 GM 60 PUFF INH IH (01:01)
[2022-07-23] MEDS: Benzonatate 100 MG CAP PO (01:02)
[2022-07-23] MEDS: Inhaler, Assist Device 1 EACH MC (01:02)
--- NOTE | 2022-07-23 01:02 | DI.VRAD_ITS ---
PROCEDURE INFORMATION: Exam: XR Chest Exam date and time: 07/22/2022 11:57 PM Age: 76 years old Clinical indication: Chest wall pain; Additional info: Chest pain, R/O pneumonia TECHNIQUE: Imaging protocol: Radiologic exam of the chest. Views: 2 views. COMPARISON: CR XR CHEST 2V PA LATERAL 04/02/2022 11:55 PM FINDINGS: Lungs: Unremarkable. No consolidation. Pleural spaces: Unremarkable. No pleural effusion. No pneumothorax. Heart/Mediastinum: Unremarkable. No cardiomegaly. Bones/joints: Unremarkable. IMPRESSION: No acute findings. Dictated and Authenticated by: Prieto Brasher MD. Ordering:DAVY Delcid MD
[2022-07-23 01:04] VITALS: BP 173/97; PULSE 64; RESP 18; TEMP 36.8; O2SAT 97
== END 2022-07-23 01:20 | disposition home or self-care (01) ==
PROVIDERS: Emergency Provider Physician Assistant; PCP Family Medicine
DX: J98.8 Other specified respiratory disorders (principal); B97.4 Respiratory syncytial virus as the cause of diseases classified elsewhere; I10 Essential (primary) hypertension; Z20.822 Contact with and (suspected) exposure to COVID-19
CPT/HCPCS: 87637; 93005; 94640; 96374; 99284; 71046; 93010; 99285; J1100

== ENCOUNTER 2022-09-14 17:52 | Emergency (ER) | payer OTHER, SELFPAY ==
[2022-09-14] VITALS (63 sets, daily range): BP systolic 132–177; BP diastolic 85–98; PULSE 60–77; RESP 13–23; TEMP 36.6; O2SAT 94–99
--- NOTE | 2022-09-14 20:00 | RT.EKG_ITS ---
APPROVED REPORT Exam: Resting ECG Reason for Exam: Chest pain Patient Location: E HR:67 bpm ECG Measurements Heart Rate 67 AXIS WA 170 P 73 QRSd 90 QRS 9 QT 409 T 51 QTc 431 Conclusion Sinus rhythm...normal P axis, V-rate 60- 99 I have reviewed and interpreted ECG and agree with software generated interpretation.
--- NOTE | 2022-09-14 20:00 | DI.RAD_ITS ---
Exam(s) XR CHEST 2V PA LATERAL EXAM: XR CHEST 2V PA LATERAL CLINICAL HISTORY: chest pain TECHNIQUE: 2D digital imaging was performed of the chest. Two images were obtained. PA and lateral views were obtained. COMPARISON: CR,XR XR CHEST 2V PA LATERAL from 07/22/2022 FINDINGS: MEDIASTINUM: Normal. HEART: Normal. PULMONARY VASCULATURE: Normal. LUNGS: Clear. PLEURAL SPACE: No pleural effusion or pneumothorax. BONE:Within normal limits for the patient's age. OTHER FINDINGS:Normal. IMPRESSION: No acute pulmonary findings. DATA REPOSITORY: RADIATION DOSE DELIVERED:
[2022-09-14 20:35] LABS: Abs Immature Grans 0.05 10^3/uL (0.0-0.06); Absolute Basophil Count 0.04 10^3/uL (0.0-0.2); Absolute Eosinophil Count 0.11 10^3/uL (0.0-0.7); Absolute Lymphocyte Count 1.44 10^3/uL (1.2-3.4); Absolute Monocyte Count 0.77 10^3/uL (0.1-0.8); Absolute Neutrophil Count 7.29 10^3/uL (1.2-6.7); Basophils % 0.4; Eosinophils % 1.1; HCT 44.6 % (40.0-50.0); HGB 15.8 g/dL (13.5-17.5); Immature Grans % 0.5; Lymphocytes % 14.8; MCH 32.8 pg (27.0-33.0); MCHC 35.4 % (32.0-36.0); MCV 93 fL (80-95); MPV 10.3 fL (8.0-11.0); Monocytes % 7.9; Neutrophils % 75.3; Platelet Count 209 10^3/uL (130-400); RBC 4.82 10^6/uL (4.36-5.78); RDW 12.2 % (11.8-14.1)
[2022-09-14 20:52] LABS: ALT 62 U/L (16-63); AST 27 U/L (15-37); Albumin 4.1 g/dL (3.4-5.0); Alkaline Phosphatase 83 U/L (46-116); Anion Gap 6.3 mmol/L (3-11); BUN 19 mg/dL (7-18); Bilirubin, Total 0.6 mg/dL (0.2-1.0); CO2 29.7 mmol/L (21.0-32.0); Calcium 9.3 mg/dL (8.5-10.1); Chloride 104 mmol/L (98-107); Glucose 102 mg/dL (74-106); Magnesium 2.1 mg/dL (1.8-2.4); Potassium 4.1 mmol/L (3.5-5.1); Sodium 140 mmol/L (136-145); Total Protein 7.8 g/dL (6.4-8.2); Troponin I < 50 ng/L (<or=60)
--- NOTE | 2022-09-14 21:16 | DI.VRAD_ITS ---
PROCEDURE INFORMATION: Exam: XR Chest Exam date and time: 09/14/2022 8:47 PM Age: 76 years old Clinical indication: Other: Chest pain TECHNIQUE: Imaging protocol: Radiologic exam of the chest. Views: 2 views. COMPARISON: CR XR CHEST 2V PA LATERAL 07/22/2022 11:57 PM FINDINGS: Lungs: Unremarkable. No consolidation. Pleural spaces: Unremarkable. No pleural effusion. No pneumothorax. Heart/Mediastinum: Unremarkable. No cardiomegaly. Bones/joints: Unremarkable. IMPRESSION: No acute findings. Dictated and Authenticated by: Navi Carrion MD. Ordering:CHEIKH Marvin MD
--- NOTE | 2022-09-14 22:14 | ED.GENADUL_ITS ---
Discharge Plan Disposition Patient Disposition: Home Condition: Stable Discharge Details Clinical Impression: Hypertension, Chest discomfort Primary Care Provider: Letty Negrete ED Provider: Cirilo Bravo Home Meds and New Rx's Prescriptions: Continued pantoprazole 40 mg tablet,delayed release (DR/EC) 40 mg PO DAILY losartan 50 mg tablet 50 mg PO DAILY atorvastatin [Lipitor] 20 MG tablet 20 mg PO DAILY Acidophilus Capsule 4 cap PO 6XD simethicone 80 mg Tablet 80 mg PO PRN PRN Centrum Silver Men 1 EACH tablet 1 tab PO DAILY benzonatate 100 mg capsule 100 mg PO TID PRN (Reason: cough) Qty: 10 0RF Discharge Instructions Instructions: Chest Pain (ED), Hypertension (ED) Additional Instructions: At this time your laboratory work-up has returned, there is no evidence of significant cardiac abnormality. If you notice any worsening of your symptoms, or any new symptoms such as vomiting, diarrhea, fever, chills, shortness of breath, chest pain, numbness, weakness, or fainting , please return immediately to the emergency department for reevaluation. Please follow up with your primary care provider as soon as possible for reassessment and reevaluation. As always, it was a pleasure participating in your medical care today. Referrals: Letty Negrete [Primary Care Provider] - Discharge Data Discharge Date/Time-TO BE ENTERED AT DEPARTURE: 09/15/22 00:22 Medical Decision Making Patient presenting to the emergency department for chief complaint of elevated blood pressure. Patient reports that he saw his primary care provider today and had noted elevated blood pressure. Primary care provider informed patient that he should continue to monitor his blood pressure and take additional dose of losartan if he continues to have additional blood pressure and just record readings. After seeing his primary care provider he went home today and had blood pressure readings in the 200s systolic. Patient does state episode of then becoming diaphoretic and having chest pressure with the elevated reading. [facility] and they instructed him to come and be evaluated. Patient now only states mild chest ache and denies all other symptoms. Patient states only past medical history is hypertension, adenoma of colon, and some GERD. Physical exam is unremarkable without any acute findings. We will plan on checking EKG and labs given patient's diaphoresis and chest pain. Please see physician interpretation for full interpretation of EKG but upon my review patient is in sinus rhythm with no acute ischemic findings to suggest STEMI. Reviewed patient's initial labs and CBC is nondiagnostic with only abnormality noted is slight elevation of neutrophils of 7.29. CMP shows slight elevation of BUN at 19 otherwise all other CMP results are within normal range, troponin is initially undetected less than 50. Reviewed patient's chest x-ray which shows no acute findings. Reassessed patient and he remains asymptomatic pending second troponin. Imaging Data Radiologic Study: Attestation: I personally reviewed and interpreted this imaging study as follows: Imaging: X-Ray Radiologist's impression: Exam: XR Chest Exam date and time: 09/14/2022 8:47 PM Age: 76 years old Clinical indication: Other: Chest pain TECHNIQUE: Imaging protocol: Radiologic exam of the chest. Views: 2 views. COMPARISON: CR XR CHEST 2V PA LATERAL 07/22/2022 11:57 PM FINDINGS: Lungs: Unremarkable. No consolidation. Pleural spaces: Unremarkable. No pleural effusion. No pneumothorax. Heart/Mediastinum: Unremarkable. No cardiomegaly. Bones/joints: Unremarkable. IMPRESSION: No acute findings. Lab Data Lab results reviewed: Yes I reviewed the patient's lab results. HPI General Mode of arrival: ambulatory . Date/Time Provider Initiated Documentation: 09/14/22 19:41 . Limitations to Documentation: no limitations . Information obtained by: patient and RN notes reviewed . History of Present Illness 76 year old M presents to the emergency department with the chief complaint of Elevated blood pressure, described as mild, with intensity rated at 1. Quality is described as aching, and is localized to the chest. Patient reports no radiation. Patient started experiencing this hour(s) (2) and it has been constant. No relieving factors improve symptom(s), No exacerbating factors reported . Patient notes chest pain and diaphoresis; denies shortness of breath and syncope. Patient did receive the following treatments prior to arrival, other (Took additional dose of losartan) Related Data Home Medications Medication Instructions Recorded Confirmed atorvastatin 20 mg tablet (Lipitor) 20 mg PO DAILY 02/26/15 09/14/22 egbyuwrj-tat-ecrri acid 300 1 tab PO DAILY 09/03/16 09/14/22 mcg-lycopene 600 mcg-lutein 300 mcg tablet (Centrum Silver Men) losartan 50 mg tablet 50 mg PO DAILY 09/10/21 09/14/22 pantoprazole 40 mg tablet,delayed 40 mg PO DAILY 09/10/21 09/14/22 release Lactobacillus acidophilus 4 cap PO 6XD 04/02/22 09/14/22 (Acidophilus capsule) simethicone 80 mg tablet 80 mg PO PRN PRN 04/02/22 09/14/22 benzonatate 100 mg capsule 100 mg PO TID PRN cough #10 caps 07/23/22 09/14/22 Previous Rx's Medication Instructions Recorded benzonatate 100 mg capsule 100 mg PO TID PRN cough #10 caps 07/23/22 Allergies Allergy/AdvReac Type Severity Reaction Status Date / Time lisinopril AdvReac Intermediate cough Verified 09/15/22 07:07 General Stated Complaint: GenMedical ANISA: 3 Review of Systems Constitutional Constitutional: Denies chills, Denies fever(s) and Denies malaise Cardiovascular Cardiovascular: Reports as per HPI, Reports chest pain, Denies chest pain with activity, Denies syncope, Denies irregular heart rhythm, Denies palpitations and Denies dyspnea Respiratory Respiratory: Denies cough, Denies hemoptysis and Denies dyspnea Gastrointestinal Gastrointestinal: Denies abdominal pain, Denies nausea and Denies vomiting Neurologic Neurologic: Denies syncope Psychiatric Psychiatric: Denies anxiety Endocrine Endocrine: Denies cold intolerance, Denies heat intolerance and Denies palpitations PFSH All Active Problems (Updated 09/15/22 @ 00:13 by Cirilo Bravo DO) Hypertension (Chronic) Chest discomfort (Acute) Chronic abdominal pain (Acute) Screening for colon cancer (Acute) Tubular adenoma of colon (Acute 09/05/17) Medical History (Updated 09/15/22 @ 00:13 by Cirilo Bravo DO) Adrenal adenoma Arm paresthesia, left Eczema Esophagitis determined by endoscopy Fatigue Gastric polyps Gastritis and duodenitis GERD (gastroesophageal reflux disease) HTN (hypertension) Hypercholesterolemia Rotator cuff syndrome Skin lesion of face Surgical History (Updated 05/20/22 @ 08:40 by Brenda Lorenzo RN) Colonoscopy - MAC (09/05/17) 04/2022 H/O esophagogastroduodenoscopy (~10/02/18) ruptured achilles Tonsillectomy Vasectomy Social History Smoking/Tobacco Use Status: Former Tobacco Use Smoking risk assessment performed?: Yes Alcohol Intake: former Drug use: Never Substance use type: does not use Details: Patient reports sniffles this AM no other smptoms. Do you feel safe at home: Yes Do you feel safe in your relationship?: Yes Exam Const General: cooperative, healthy appearing, comfortable, no acute distress, not diaphoretic and not ill appearing Nutritional Appearance: average body habitus Orientation: alert, awake and oriented x3 Limitations: mental status not altered Neck Neck: normal visual inspection, full ROM, trachea midline, supple and no anterior neck swelling Thyroid: thyroid normal Carotids: normal carotid upstroke and no bruits Chest Chest: normal inspection of the chest Resp Effort & Inspection: normal respiratory effort and able to speak in complete sentences Auscultation: clear to auscultation bilaterally Cardio Jugular venous pressure: no JVD Palpation: normal PMI Rate: regular rate Rhythm: regular rhythm Heart Sounds: S1 normal, S2 normal, no click, no gallops, no murmurs and no rubs Bruits: no abdominal aortic bruits and no carotid bruits Pulses: radial pulses present bilaterally 2+ GI Inspection: normal to inspection Palpation: soft, no aortic enlargement, no pulsatile masses and nontender Auscultation: normal bowel sounds Skin General skin exam: no rashes or lesions noted Neuro General: patient alert, patient awake, patient oriented x3, tone normal and moves all extremities Course Vital Signs Vital signs: Vital Signs Temperature 36.6 C 09/14/22 17:58 Pulse 71 09/14/22 17:58 Respiratory Rate 14 09/14/22 17:58 Blood Pressure 177/98 H 09/14/22 17:58 Pulse Oximetry 99 09/14/22 17:58 Temperature 36.6 C 09/14/22 17:58 Temperature Source Tympanic 09/14/22 17:58 Pulse 62 09/14/22 21:21 Pulse 65 09/14/22 22:02 Respiratory Rate 17 09/14/22 22:02 Respiratory Effort Normal, Non-Labored 09/14/22 19:38 Respiratory Depth Normal 09/14/22 19:38 Respiratory Pattern Normal 09/14/22 19:38 Blood Pressure 152/93 H 09/14/22 21:21 Blood Pressure Mean 107 09/14/22 21:21 Blood Pressure Position Supine 09/14/22 17:58 Pulse Oximetry 96 09/14/22 21:22 Oxygen Delivery Method Room Air 09/14/22 19:37 Oxygen Flow Rate 0 09/14/22 19:37 Pain Level 0 09/14/22 17:58 Lab/Test Results Lab/Test Results: Laboratory Tests Range/Units 09/14/22 09/14/22 20:22 20:22 WBC (4.4-10.8) 10^3/uL 9.70 RBC (4.36-5.78) 10^6/uL 4.82 Hgb (13.5-17.5) g/dL 15.8 Hct (40.0-50.0) % 44.6 MCV (80-95) fL 93 MCH (27.0-33.0) pg 32.8 MCHC (32.0-36.0) % 35.4 RDW (11.8-14.1) % 12.2 Plt Count (130-400) 10^3/uL 209 MPV (8.0-11.0) fL 10.3 Immature Gran % 0.5 Neutrophils % 75.3 Lymphocytes % 14.8 Monocytes % 7.9 Eosinophils % 1.1 Basophils % 0.4 Nucleated RBC % (0.0-0.3) % 0.0 Absolute Neutrophils (1.2-6.7) 10^3/uL 7.29 H Absolute Lymphocytes (1.2-3.4) 10^3/uL 1.44 Absolute Monocytes (0.1-0.8) 10^3/uL 0.77 Absolute Eosinophils (0.0-0.7) 10^3/uL 0.11 Absolute Basophils (0.0-0.2) 10^3/uL 0.04 Sodium (136-145) mmol/L 140 Potassium (3.5-5.1) mmol/L 4.1 Chloride (98-107) mmol/L 104 Carbon Dioxide (21.0-32.0) mmol/L 29.7 Anion Gap (3-11) mmol/L 6.3 BUN (7-18) mg/dL 19 H Creatinine (0.70-1.30) mg/dL 1.0 Est GFR (CKD-EPI 2020) (mL/min/1.73m2) 78.00 Glucose (74-106) mg/dL 102 Calcium (8.5-10.1) mg/dL 9.3 Magnesium (1.8-2.4) mg/dL 2.1 Total Bilirubin (0.2-1.0) mg/dL 0.6 AST (15-37) U/L 27 ALT (16-63) U/L 62 Alkaline Phosphatase (46-116) U/L 83 Troponin I (<or=60) ng/L < 50 Total Protein (6.4-8.2) g/dL 7.8 Albumin (3.4-5.0) g/dL 4.1 Sign Out Sign Out Data: Sign Out Comment: Patient signed out pending delta troponin and presumed discharge to follow-up with primary care provider for diagnosis of hypertension. Last updated by Yon Sam NP at 09/14/22 23:40
[2022-09-14 23:55] LABS: Troponin I < 50 ng/L (<or=60)
[2022-09-15 00:13] VITALS: BP 132/81; PULSE 67; RESP 16; TEMP 36.6; O2SAT 95
--- NOTE | 2022-09-15 00:14 | W.EDPROG ---
Date of service: 09/15/22 Time of Service: 00:14 Medical Decision Making Patient was signed out to me by my colleague Praveen Sam. Please refer to his HPI, physical exam, assessment and plan. Plan was for expectant discharge if troponin returned normal. Patient was signed out pending repeat troponin. Repeat troponin has returned and is normal. Patient remains chest pain-free. He feels well and would like to go home. Patient was reassessed, symptoms appear clinically inconsistent with ACS, PE or dissection. I have extensively reviewed the treatment plan and discharge instructions with the patient. I have addressed all patient concerns at this time. The patient was made aware of what symptoms to monitor for that would warrant a return to the emergency department. Discussed the plan with the patient, they demonstrate verbal understanding and agreement with our assessment and plan at this time. The documentation in this chart was dictated using [employer] dictation software. Please excuse any dictation errors. Sign Out Sign Out Data: Sign Out Comment: Patient signed out pending delta troponin and presumed discharge to follow-up with primary care provider for diagnosis of hypertension. Last updated by Yon Sam, LETTER OF CREDIT DOCUMENT EXAMINER at 09/14/22 23:40 Discharge Plan Disposition Patient Disposition: Home Condition: Stable Discharge Details Clinical Impression: Hypertension, Chest discomfort Primary Care Provider: Letty Negrete ED Provider: Yon Sam Home Meds and New Rx's Prescriptions: Continued pantoprazole 40 mg tablet,delayed release (DR/EC) 40 mg PO DAILY losartan 50 mg tablet 50 mg PO DAILY atorvastatin [Lipitor] 20 MG tablet 20 mg PO DAILY Acidophilus Capsule 4 cap PO 6XD simethicone 80 mg Tablet 80 mg PO PRN PRN Centrum Silver Men 1 EACH tablet 1 tab PO DAILY benzonatate 100 mg capsule 100 mg PO TID PRN (Reason: cough) Qty: 10 0RF Discharge Instructions Instructions: Chest Pain (ED), Hypertension (ED) Additional Instructions: At this time your laboratory work-up has returned, there is no evidence of significant cardiac abnormality. If you notice any worsening of your symptoms, or any new symptoms such as vomiting, diarrhea, fever, chills, shortness of breath, chest pain, numbness, weakness, or fainting , please return immediately to the emergency department for reevaluation. Please follow up with your primary care provider as soon as possible for reassessment and reevaluation. As always, it was a pleasure participating in your medical care today. Referrals: Letty Negrete [Primary Care Provider] -
== END 2022-09-15 00:22 | disposition home or self-care (01) ==
PROVIDERS: Nurse Practitioner Family; Emergency Provider Student in an Organized Health Care Education/Training Program; PCP Family Medicine
DX: I10 Essential (primary) hypertension (principal); R07.89 Other chest pain; R79.89 Other specified abnormal findings of blood chemistry; D72.829 Elevated white blood cell count, unspecified
CPT/HCPCS: 36415; 80053; 93005; 99283; 71046; 83735; 84484; 85025; 93010; 99284

== ENCOUNTER 2023-03-23 16:34 | Outpatient (CLI) | payer MEDICARE, BC, SELFPAY ==
[2023-03-23 15:53] LABS: D-Dimer 541 ng/mlFEU (<500)
== END 2023-03-23 16:35 | disposition home or self-care (01) ==
PROVIDERS: PCP Family Medicine; Visit Provider Nurse Practitioner Family
DX: R60.0 Localized edema (principal)
CPT/HCPCS: 36415; 85379

== ENCOUNTER → 2023-03-25 00:49 | Outpatient (CLI) | payer MEDICARE, BC, SELFPAY ==
--- NOTE | 2023-03-25 09:08 | DI.RAD_ITS ---
Exam(s) XR KNEE RT 3V AP,LAT,MP EXAM: XR KNEE RT 3V AP,LAT,MP CLINICAL HISTORY: RT KNEE PAIN, M25.561. TECHNIQUE: 2D digital imaging was performed of the right knee. Three views obtained. AP, lateral an d PA tunnel views were obtained. COMPARISON: CR,XR XR CHEST 2V PA LATERAL from 09/14/2022 FINDINGS: BONES: No acute fracture is present. No bony destructive lesion is seen. JOINTS: There is moderate narrowing of the medial femoral tibial joint. There is mild spurring of th e posterior patella. There is a joint effusion present. SOFT TISSUE: Mild atherosclerosis. IMPRESSION: Mild degenerative changes of the knee. DATA REPOSITORY: RADIATION DOSE DELIVERED:
== END ==
PROVIDERS: PCP Family Medicine; Visit Provider Nurse Practitioner Family
DX: M17.12 Unilateral primary osteoarthritis, left knee (principal); M17.11 Unilateral primary osteoarthritis, right knee
CPT/HCPCS: 73562

== ENCOUNTER 2023-03-26 15:55 | Outpatient (REF) | payer MEDICARE, BC, SELFPAY ==
[2023-03-26 16:25] LABS: ALT 30 U/L (16-63); AST 19 U/L (15-37); Albumin 3.9 g/dL (3.4-5.0); Alkaline Phosphatase 87 U/L (46-116); Anion Gap 8.9 mmol/L (3-11); BUN 21 mg/dL (7-18); Bilirubin, Total 0.5 mg/dL (0.2-1.0); CO2 30.1 mmol/L (21.0-32.0); Calcium 9.3 mg/dL (8.5-10.1); Chloride 104 mmol/L (98-107); Estimated GFR 77.52 (mL/min/1.73m2); Glucose 101 mg/dL (74-106); Sodium 143 mmol/L (136-145); Total Protein 7.4 g/dL (6.4-8.2)
[2023-03-28 09:41] LABS: Lyme Ab w Rflx to Lyme Confirm Negative (Negative)
== END 2023-03-26 15:56 | disposition home or self-care (01) ==
LOC: LBN 15:55
PROVIDERS: PCP Family Medicine; Visit Provider Nurse Practitioner Family
DX: R60.0 Localized edema (principal); T14.8XXA Other injury of unspecified body region, initial encounter; W57.XXXA Bitten or stung by nonvenomous insect and other nonvenomous arthropods, initial encounter
CPT/HCPCS: 80053; 86618

== ENCOUNTER → 2023-04-21 08:27 | Outpatient (BNVA) | payer MEDICARE, BC, SELFPAY | PROVIDERS: PCP Family Medicine; Referring Provider Family Medicine | DX: M17.11 Unilateral primary osteoarthritis, right knee (principal) | CPT/HCPCS: 20610; J1040 ==

== ENCOUNTER 2024-05-07 18:18 | Outpatient (REF) | payer MEDICARE, BC, SELFPAY ==
[2024-05-07 15:34] LABS: Abs Immature Grans 0.04 10^3/uL (0.0-0.06); Absolute Basophil Count 0.05 10^3/uL (0.0-0.2); Absolute Eosinophil Count 0.25 10^3/uL (0.0-0.7); Absolute Lymphocyte Count 2.44 10^3/uL (1.2-3.4); Absolute Monocyte Count 0.94 10^3/uL (0.1-0.8); Absolute Neutrophil Count 4.07 10^3/uL (1.2-6.7); Basophils % 0.6 %; Eosinophils % 3.2 %; HCT 44.5 % (40.0-50.0); HGB 15.3 g/dL (13.5-17.5); Immature Grans % 0.5 %; Lymphocytes % 31.3 %; MCH 33.2 pg (27.0-33.0); MCHC 34.4 % (32.0-36.0); MCV 97 fL (80-95); MPV 10.9 fL (8.0-11.0); Monocytes % 12.1 %; Neutrophils % 52.3 %; Platelet Count 180 10^3/uL (130-400); RBC 4.61 10^6/uL (4.36-5.78); RDW 12.1 % (11.8-14.1); RDW-SD 43.2 fL; WBC 7.79 10^3/uL (4.4-10.8)
[2024-05-07 16:20] LABS: ALT 74 U/L (16-63); AST 35 U/L (15-37); Alkaline Phosphatase 85 U/L (46-116); Anion Gap 6.3 mmol/L (3-11); BUN 24 mg/dL (7-18); CO2 31.7 mmol/L (21.0-32.0); CREATININE 1.1 mg/dL (0.70-1.30); Calcium 9.5 mg/dL (8.5-10.1); Calculated LDL 85 mg/dL (<100); Chloride 107 mmol/L (98-107); Cholesterol 167 mg/dL (<200); Estimated GFR 68.71 (mL/min/1.73m2); Glucose 84 mg/dL (74-106); HDL Cholesterol 65 mg/dL (40-60); Potassium 4.7 mmol/L (3.5-5.1); Sodium 145 mmol/L (136-145); Total Protein 7.4 g/dL (6.4-8.2); Triglyceride 87 mg/dL (<150); Vitamin D 25 Total 36.5 ng/mL (30-100)
== END 2024-05-07 18:19 | disposition home or self-care (01) ==
LOC: NCHCN 18:18
PROVIDERS: PCP Family Medicine; Visit Provider Family Medicine
DX: I10 Essential (primary) hypertension (principal); E78.00 Pure hypercholesterolemia, unspecified; M19.09 Primary osteoarthritis, other specified site; Z00.00 Encounter for general adult medical examination without abnormal findings
CPT/HCPCS: 80053; 80061; 82306; 85025

== ENCOUNTER → 2024-07-16 10:32 | Outpatient (BNVA) | payer MEDICARE, BC, SELFPAY | PROVIDERS: PCP Family Medicine; Referring Provider Family Medicine; Visit Provider Physician Assistant | DX: M17.11 Unilateral primary osteoarthritis, right knee (principal) | CPT/HCPCS: 20610; J1010 ==

== ENCOUNTER 2024-08-22 00:11 | Outpatient (CLI) | payer MEDICARE, BC, SELFPAY ==
--- NOTE | 2024-08-22 | DI.US_ITS ---
Exam(s) US ABDOMEN LIMITED EXAM: US ABDOMEN LIMITED CLINICAL HISTORY: Elevation of levels of liver transaminase levels, R74.01, [id number] TECHNIQUE: Ultrasound abdomen performed using standard protocol. COMPARISON: CT CT ABDOMEN PELVIS W from 08/05/2021 FINDINGS: LIVER: Normal size. Normalechogenicity. No focal liver lesions are seen.. GALLBLADDER: No evidence of cholelithiasis. No evidence of wall thickening. No pericholecystic fluid identified. JOHNSON'S SIGN: Negative. BILIARY SYSTEM: No intrahepatic or extrahepatic biliary ductal dilation. RIGHT KIDNEY: Normal size. No evidence of renal calculi. No evidence of hydronephrosis. No suspicious renal mass. No cyst identified. PANCREAS: Normal where visualized. ABDOMINAL AORTA AND IVC: Visualized portions normal caliber. ASCITES: None seen. IMPRESSION: Normal sonographic appearance of the right upper quadrant. DATA REPOSITORY:
== END 2024-08-22 00:31 ==
LOC: DI 00:11
PROVIDERS: PCP Family Medicine; Visit Provider Internal Medicine
DX: M79.604 Pain in right leg (principal)
CPT/HCPCS: 76705

== ENCOUNTER 2024-08-22 08:50 | Emergency (ER) | payer MEDICARE, BC, SELFPAY ==
[2024-08-22 08:52] VITALS: BP 158/94; PULSE 70; RESP 18; TEMP 36.8; O2SAT 95
--- NOTE | 2024-08-22 09:15 | DI.US_ITS ---
Exam(s) US LOWER EXTREMITY VENOUS RT EXAM: US LOWER EXTREMITY VENOUS RT CLINICAL HISTORY: pain right calf and thigh. TECHNIQUE: Lower extremity venous ultrasound performed using grayscale, color-flow, and spectral Do ppler analysis. COMPARISON: No exams were available for comparison FINDINGS: The common femoral, femoral and popliteal veins demonstrate normal compressibility, augmentation, and color Doppler. The posterior tibial and peroneal veins are patent. No saphenous vein thrombosis or other superficial venous thrombosis is seen. No hematoma or Wallace's cyst is seen. IMPRESSION: Negative lower extremity ultrasound. No evidence of DVT. DATA REPOSITORY:
[2024-08-22 09:45] LABS: Abs Immature Grans 0.04 10^3/uL (0.0-0.06); Absolute Basophil Count 0.04 10^3/uL (0.0-0.2); Absolute Eosinophil Count 0.13 10^3/uL (0.0-0.7); Absolute Lymphocyte Count 1.43 10^3/uL (1.2-3.4); Absolute Monocyte Count 0.68 10^3/uL (0.1-0.8); Absolute Neutrophil Count 5.11 10^3/uL (1.2-6.7); Basophils % 0.5 %; Eosinophils % 1.7 %; HCT 42.7 % (40.0-50.0); HGB 14.9 g/dL (13.5-17.5); Immature Grans % 0.5 %; Lymphocytes % 19.2 %; MCH 33.1 pg (27.0-33.0); MCHC 34.9 % (32.0-36.0); MCV 95 fL (80-95); MPV 10.2 fL (8.0-11.0); Monocytes % 9.2 %; Neutrophils % 68.9 %; Platelet Count 179 10^3/uL (130-400); RDW-SD 42.2 fL; WBC 7.43 10^3/uL (4.4-10.8)
[2024-08-22 10:02] LABS: ALT 58 U/L (16-63); AST 25 U/L (15-37); Albumin 3.7 g/dL (3.4-5.0); Alkaline Phosphatase 84 U/L (46-116); Anion Gap 7.6 mmol/L (3-11); BUN 15 mg/dL (7-18); Bilirubin, Total 0.93 mg/dL (0.2-1.0); CO2 30.4 mmol/L (21.0-32.0); CREATININE 1.2 mg/dL (0.70-1.30); Calcium 9.1 mg/dL (8.5-10.1); Chloride 106 mmol/L (98-107); Creatine Kinase 124 U/L (39-308); Glucose 119 mg/dL (74-106); Magnesium 1.8 mg/dL (1.8-2.4); Potassium 3.9 mmol/L (3.5-5.1); Sodium 144 mmol/L (136-145); Total Protein 7.2 g/dL (6.4-8.2)
--- NOTE | 2024-08-22 11:11 | W.ED.GENAD ---
Discharge Plan Disposition Patient Disposition: Home Condition: Stable Discharge Details Clinical Impression: Muscle spasm Primary Care Provider: Letty Negrete ED Provider: Kelly Davila Home Meds and New Rx's Prescriptions: New atorvastatin [Lipitor] 10 mg tablet 10 mg PO DAILY Qty: 30 0RF Continued losartan-hydrochlorothiazide 100-12.5 mg tablet 1 tab PO DAILY magnesium oxide 200 mg magnesium tablet 200 mg PO DAILY amlodipine 2.5 mg tablet 2.5 mg PO DAILY pantoprazole 20 mg tablet,delayed release (DR/EC) 20 mg PO DAILY simethicone 80 mg Tablet 80 mg PO PRN PRN aspirin 81 mg capsule 81 mg PO DAILY Centrum Silver Men 1 EACH tablet 1 tab PO DAILY Discontinued atorvastatin [Lipitor] 20 MG tablet 20 mg PO DAILY Discharge Instructions Instructions: Muscle Spasm ED Additional Instructions: May apply Aspercreme, [place] balm, or Motrin gel over the area of tenderness Compresses may also be helpful we have applied a Lidoderm patch to the area of spasm, this can stay on for 12 hours and should be removed for 12 hours Your Lipitor may be causing the spasms and pain in your muscles, lets try decreasing your Lipitor you may cut your 20 mg tablet in half with a pill cutter Please follow-up with your doctor next week for reassessment and return earlier should you have new or worsening complaints Please talk to your doctor about whether or not another statin may be an option or alternatives to dosing of the Lipitor. Your ultrasound and labs today are reassuring, please return immediately should you have new or worsening complaints including chest pain, shortness of breath, worsening discomfort in your legs You may take Tylenol as needed for discomfort per package instructions do not exceed 3 g of Tylenol daily Referrals: Letty Negrete [Primary Care Provider] - 1 week HPI General Date/Time Provider Initiated Documentation: 08/22/24 09:00. HPI Narrative: The patient is a 78-year-old male presenting with a report of right leg pain that started last evening while he was bowling. He has a history of muscle spasms and was advised to drink Pedialyte to replenish his electrolytes for this issue. The pain is predominantly in his posterior thigh. He reports no known exacerbating or alleviating factors. He does not endorse any chest pain or shortness of breath. He also does not endorse recent flights, surgeries, long drives, or a history of coagulopathy. His past medical history includes hypertension, hyperlipidemia, and GERD. He does not endorse any new medications. He takes Lipitor 20 mg daily. Related Data Home Medications ?Medication ?Instructions ?Recorded ?Confirmed [id number] 300 mcg-K 60 1 tab PO DAILY 09/03/16 08/22/24 mcg-lycop 600 mcg-lutein 300 mcg tablet (Centrum Silver Men) simethicone 80 mg tablet 80 mg PO PRN PRN 04/02/22 08/22/24 amlodipine 2.5 mg tablet 2.5 mg PO DAILY 04/04/23 08/22/24 pantoprazole 20 mg tablet,delayed 20 mg PO DAILY 04/04/23 08/22/24 release losartan 100 1 tab PO DAILY 07/16/24 08/22/24 mg-hydrochlorothiazide 12.5 mg tablet magnesium oxide 200 mg PO DAILY 07/16/24 08/22/24 aspirin 81 mg capsule 81 mg PO DAILY 08/22/24 08/22/24 atorvastatin 10 mg tablet (Lipitor) 10 mg PO DAILY #30 tabs 08/22/24 Previous Rx's ?Medication ?Instructions ?Recorded atorvastatin 10 mg tablet (Lipitor) 10 mg PO DAILY #30 tabs 08/22/24 Allergies Allergy/AdvReac Type Severity Reaction Status Date / Time lisinopril AdvReac Intermediate cough Verified 08/22/24 08:57 General Stated Complaint: Vascular ANISA: 4 Exam Narrative Exam Narrative: General Appearance: The patient is alert, oriented, and very pleasant. He is in no acute distress. Vital signs: Within normal limits. HEENT: Within normal limits. Respiratory: No respiratory distress. Cardiovascular: The heart rate is regular. Skin: There are no rashes or lesions on the skin. Extremities: No tenderness to calf. Distal pulses are intact. Neurological: Normal. Course Vital Signs Vital signs: Vital Signs Temperature 36.8 C 08/22/24 08:52 Pulse 70 08/22/24 08:52 Respiratory Rate 18 08/22/24 08:52 Blood Pressure 158/94 H 08/22/24 08:52 Pulse Oximetry 95 08/22/24 08:52 Temperature 36.8 C 08/22/24 08:52 Temperature Source Oral 08/22/24 08:52 Pulse 70 08/22/24 08:52 Respiratory Rate 18 08/22/24 08:52 Blood Pressure 158/94 H 08/22/24 08:52 Blood Pressure Position Sitting 08/22/24 08:52 Pulse Oximetry 95 08/22/24 08:52 Oxygen Delivery Method Room Air 08/22/24 08:52 Oxygen Flow Rate 0 08/22/24 08:52 Pain Level 5 08/22/24 08:52 Lab/Test Results Lab/Test Results: Laboratory Tests Range/Units 08/22/24 09:42 WBC (4.4-10.8) 10^3/uL 7.43 RBC (4.36-5.78) 10^6/uL 4.50 Hgb (13.5-17.5) g/dL 14.9 Hct (40.0-50.0) % 42.7 MCV (80-95) fL 95 MCH (27.0-33.0) pg 33.1 H MCHC (32.0-36.0) % 34.9 RDW (11.8-14.1) % 12.0 Plt Count (130-400) 10^3/uL 179 MPV (8.0-11.0) fL 10.2 Immature Gran % % 0.5 Neutrophils % % 68.9 Lymphocytes % % 19.2 Monocytes % % 9.2 Eosinophils % % 1.7 Basophils % % 0.5 Nucleated RBC % (0.0-0.3) % 0.0 Absolute Neutrophils (1.2-6.7) 10^3/uL 5.11 Absolute Lymphocytes (1.2-3.4) 10^3/uL 1.43 Absolute Monocytes (0.1-0.8) 10^3/uL 0.68 Absolute Eosinophils (0.0-0.7) 10^3/uL 0.13 Absolute Basophils (0.0-0.2) 10^3/uL 0.04 Sodium (136-145) mmol/L 144 Potassium (3.5-5.1) mmol/L 3.9 Chloride (98-107) mmol/L 106 Carbon Dioxide (21.0-32.0) mmol/L 30.4 Anion Gap (3-11) mmol/L 7.6 BUN (7-18) mg/dL 15 Creatinine (0.70-1.30) mg/dL 1.2 Est GFR (CKD-EPI 2020) (mL/min/1.73m2) 61.90 Glucose (74-106) mg/dL 119 H Calcium (8.5-10.1) mg/dL 9.1 Magnesium (1.8-2.4) mg/dL 1.8 Total Bilirubin (0.2-1.0) mg/dL 0.93 AST (15-37) U/L 25 ALT (16-63) U/L 58 Alkaline Phosphatase (46-116) U/L 84 Creatine Kinase (39-308) U/L 124 Total Protein (6.4-8.2) g/dL 7.2 Albumin (3.4-5.0) g/dL 3.7 Medical Decision Making Laboratory Studies CBC and CMP within normal limits including CPK and magnesium. No evidence of electrolyte derangement. Imaging Ultrasound of right lower extremity shows no evidence of DVT. Initial Assessment: 78-year-old male presenting with right leg pain that started last evening while bowling. History of muscle spasms, hypertension, hyperlipidemia, and GERD. No new medications. Takes Lipitor 20 mg daily. Denies chest pain, shortness of breath, recent flights, surgeries, long drives. History of coagulopathy. Pain predominantly in posterior thigh. No exacerbating or alleviating factors. Differential Diagnosis: - DVT: Considered due to leg pain. Excluded based on ultrasound results showing no evidence of DVT. - Muscle spasms: Considered due to history and presentation. Plan to reduce Lipitor dosage and apply Lidoderm patch. ED Course: - Ultrasound right lower extremity: No evidence of DVT per radiology interpretation. - CBC, CMP, CPK, and magnesium: Within normal limits. - No evidence of electrolyte derangement. - Advised to cut down Lipitor dosage from 20 mg to 10 mg by splitting the pill. - Applied Lidoderm patch over the area of tenderness. - Encouraged use of topical Motrin or Aspercreme after removing the patch. - Discharged home in stable condition with stable vitals. - Recommended repeat ultrasound in 1 to 2 weeks if symptoms persist. Final Assessment: Right leg pain likely due to muscle spasms. No evidence of DVT or electrolyte derangement. Treatment includes reducing Lipitor dosage, applying Lidoderm patch, and using topical pain relief. Clinical Impression: - Right leg pain - Muscle spasms Disposition: - Discharge: Patient discharged home in stable condition. - Follow-Up: Encouraged to follow up with primary care physician to discuss alternatives to statins or additional suggestions. Repeat ultrasound in 1 to 2 weeks if symptoms persist. MDM Components Evaluation: - Number of Differential Diagnoses or Management Options: DVT, Muscle spasms - Amount and Complexity of Data Reviewed: Ultrasound, CBC, CMP, CPK, magnesium - Risk of Complication and Morbidity or Mortality: Low risk based on current findings and treatment plan. Quality:SDOH Health Related Social Needs: No Data to Display PFSH All Active Problems (Updated 08/22/24 @ 10:49 by WILLIAM Cabrera) Muscle spasm (Acute) Osteoarthritis of right knee (Acute) DEPO MEDROL 07/16/24; 04/21/23 Chronic abdominal pain (Acute) Screening for colon cancer (Acute) Tubular adenoma of colon (Acute 09/05/17) Medical History (Updated 08/22/24 @ 10:49 by WILLIAM Cabrera) Arm paresthesia, left Gastric polyps Gastritis and duodenitis Esophagitis determined by endoscopy GERD (gastroesophageal reflux disease) HTN (hypertension) Skin lesion of face Adrenal adenoma Hypercholesterolemia Eczema Fatigue Rotator cuff syndrome Surgical History (Updated 05/20/22 @ 08:40 by Brenda Lorenzo RN) H/O esophagogastroduodenoscopy (~10/02/18) ruptured achilles Vasectomy Tonsillectomy Colonoscopy - MAC (09/05/17) 04/2022 Social History Smoking/Tobacco Use Status: Former Tobacco Use Smoking risk assessment performed?: Yes Alcohol Intake: former Drug use: Never Substance use type: does not use Details: Patient reports sniffles this AM no other smptoms. Do you feel safe at home: Yes Do you feel safe in your relationship?: Yes
[2024-08-22] MEDS: Lidocaine 5% Patch 1 PATCH TP (11:13)
== END 2024-08-22 11:16 | disposition home or self-care (01) ==
PROVIDERS: Emergency Provider Physician Assistant; PCP Family Medicine
DX: M62.838 Other muscle spasm (principal); I10 Essential (primary) hypertension; E78.00 Pure hypercholesterolemia, unspecified; Z79.82 Long term (current) use of aspirin; Z87.891 Personal history of nicotine dependence
CPT/HCPCS: 80053; 82550; 99284; 76705; 83735; 85025; 93971

== ENCOUNTER → 2025-01-24 13:48 | Outpatient (BNVA) | payer MEDICARE, BC, SELFPAY | PROVIDERS: PCP Family Medicine; Referring Provider Family Medicine; Visit Provider Physician Assistant | DX: M17.11 Unilateral primary osteoarthritis, right knee (principal) | CPT/HCPCS: 20610; J1010 ==

== ENCOUNTER 2025-02-20 21:22 | Emergency (ER) | payer MEDICARE, BC, SELFPAY ==
[2025-02-20] VITALS (11 sets, daily range): BP systolic 79–175; BP diastolic 58–100; PULSE 45–69; RESP 11–22; TEMP 36.6; O2SAT 92–97
--- NOTE | 2025-02-20 21:15 | RT.EKG_ITS ---
APPROVED REPORT Exam: Resting ECG Reason for Exam: chest pain Patient Location: E HR:68 bpm ECG Measurements Heart Rate 68 AXIS ID 204 P 66 QRSd 82 QRS 29 QT 375 T 57 QTc 400 Conclusion Sinus rhythm...normal P axis, V-rate 60- 99 Sinus rhythm normal axis normal intervals no acute ischemic changes
[2025-02-20 21:55] LABS: HCT 41.3 % (40.0-50.0); HGB 15.0 g/dL (13.5-17.5); MCH 33.2 pg (27.0-33.0); MCHC 36.3 % (32.0-36.0); MCV 91 fL (80-95); MPV 10.4 fL (8.0-11.0); Platelet Count 210 10^3/uL (130-400); RBC 4.52 10^6/uL (4.36-5.78); RDW 12.1 % (11.8-14.1); RDW-SD 40.6 fL; WBC 9.39 10^3/uL (4.4-10.8)
--- NOTE | 2025-02-20 22:00 | W.ED.GENAD ---
Discharge Plan Discharge Details Chief Complaint: Chest Pain Primary Care Provider: Letty Negrete ED Provider: Christianne Claire Home Meds and New Rx's Prescriptions: No Action magnesium oxide 200 mg magnesium tablet 200 mg PO DAILY amlodipine 2.5 mg tablet 2.5 mg PO DAILY pantoprazole 20 mg tablet,delayed release (DR/EC) 20 mg PO DAILY losartan 50 mg tablet 100 mg PO DAILY simethicone 80 mg Tablet 80 mg PO PRN PRN aspirin 81 mg capsule 81 mg PO DAILY atorvastatin [Lipitor] 10 mg tablet 10 mg PO DAILY Qty: 30 0RF Centrum Silver Men 1 EACH tablet 1 tab PO DAILY HPI General Mode of arrival: ambulatory. Date/Time Provider Initiated Documentation: 02/20/25 21:25. Limitations to Documentation: no limitations. Information obtained by: patient, RN notes reviewed and old records reviewed. 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 He does point to his mid epigastric area. He states that it is a 5 out of 10 no radiation. Denies any nausea vomiting shortness of breath or diaphoresis. Does have a history of hypertension takes losartan which he reports he has been taking as directed. Also takes amlodipine. No other associated symptoms or concerns. Related Data Home Medications ?Medication ?Instructions ?Recorded ?Confirmed euoncqbm-zn-ziion 300 mcg-K 60 1 tab PO DAILY 09/03/16 02/20/25 mcg-lycop 600 mcg-lutein 300 mcg tablet (Centrum Silver Men) simethicone 80 mg tablet 80 mg PO PRN PRN 04/02/22 02/20/25 amlodipine 2.5 mg tablet 2.5 mg PO DAILY 04/04/23 02/20/25 pantoprazole 20 mg tablet,delayed 20 mg PO DAILY 04/04/23 02/20/25 release magnesium oxide 200 mg PO DAILY 07/16/24 02/20/25 aspirin 81 mg capsule 81 mg PO DAILY 08/22/24 02/20/25 atorvastatin 10 mg tablet (Lipitor) 10 mg PO DAILY #30 tabs 08/22/24 02/20/25 losartan 50 mg tablet 100 mg PO DAILY 01/02/25 02/20/25 Previous Rx's ?Medication ?Instructions ?Recorded atorvastatin 10 mg tablet (Lipitor) 10 mg PO DAILY #30 tabs 08/22/24 Allergies Allergy/AdvReac Type Severity Reaction Status Date / Time lisinopril AdvReac Intermediate cough Verified 02/20/25 21:34 General Stated Complaint: Chest Pain ANISA: 3 Review of Systems All systems reviewed & are unremarkable except as noted in HPI and below Cardiovascular Cardiovascular: Reports as per HPI, Reports chest pain and Denies dyspnea Respiratory Respiratory: Denies dyspnea Gastrointestinal Gastrointestinal: Reports abdominal pain (Midepigastric describes as chest heaviness), Denies nausea and Denies vomiting Exam Narrative Exam Narrative: Constitutional: Alert and oriented x3. Appears stated age. Normal body habitus. Head: Normocephalic, no trauma. Eyes: Pupils PERRL, Red reflex noted, EOM's intact. Eyelids symmetrical without lesions, discharge, or swelling. ENT: Bilateral TM's WNL, External ear normal to inspection, no mastoid TTP, swelling, or erythema, Nasal turbinates WNL, no nasal discharge. Normal dentition, Posterior pharynx WNL, no exudate. Chest: RRR, Normal S1, S2, distal pulses intact. Hypertensive. Chest pain is nonreproducible to palpation. Resp: Lungs clear to auscultation bilaterally, no wheezes, rales, or rhonchi. Abdomen: Soft, non-distended, Normoactive bowel sounds all 4 quads. Nontender to palpation all 4 quadrants. Musculoskeletal: Moves all 4 extremities without difficulty. Skin: No suspicious rashes or lesions. Capillary refill less than 2 sec. Neurologic: Cranial nerves II-XII intact. Alert and oriented x 3. Motor: No deficits noted. Sensory: Intact bilaterally all 4 extremities. Hematologic/Lymphatic: No ecchymosis, no lymphadenopathy. Course Vital Signs Vital signs: Vital Signs Temperature 36.6 C 02/20/25 21: Pulse 69 02/20/25 21:25 Respiratory Rate 16 02/20/25 21:25 Blood Pressure 175/100 H 02/20/25 21:25 Pulse Oximetry 97 02/20/25 21:25 Temperature 36.6 C 02/20/25 21:25 Pulse 69 02/20/25 21:25 Respiratory Rate 16 02/20/25 21:29 Respiratory Effort Normal, Non-Labored 02/20/25 21:29 Respiratory Depth Normal 02/20/25 21:29 Respiratory Pattern Normal 02/20/25 21:29 Blood Pressure 175/100 H 02/20/25 21:25 Blood Pressure Position Sitting 02/20/25 21:25 Pulse Oximetry 97 02/20/25 21:25 Oxygen Delivery Method Room Air 02/20/25 21:25 Oxygen Flow Rate 0 02/20/25 21:25 Pain Level 6 02/20/25 21:25 Lab/Test Results Lab/Test Results: Laboratory Tests Range/Units 02/20/25 21:40 WBC (4.4-10.8) 10^3/uL 9.39 RBC (4.36-5.78) 10^6/uL 4.52 Hgb (13.5-17.5) g/dL 15.0 Hct (40.0-50.0) % 41.3 MCV (80-95) fL 91 MCH (27.0-33.0) pg 33.2 H MCHC (32.0-36.0) % 36.3 H RDW (11.8-14.1) % 12.1 Plt Count (130-400) 10^3/uL 210 MPV (8.0-11.0) fL 10.4 Medical Decision Making 79-year-old male who presents to the ER with a chief complaint of heavy chest, 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 He does point to his mid epigastric area. He states that it is a 5 out of 10 no radiation. Denies any nausea vomiting shortness of breath or diaphoresis. Does have a history of hypertension takes losartan which he reports he has been taking as directed. Also takes amlodipine. No other associated symptoms or concerns. EKG was reviewed by myself and Dr. Radha Hearn ER attending, old EKG available for review. Cardiac workup ordered including serial troponins, CBC CMP PT PTT proBNP Patient does have a past medical history of GERD, hypertension, hypercholesterolemia former smoker, 243 mg of aspirin ordered and 0.4 mg of sublingual nitro Q 5 x 3 as needed chest pain blood pressure and heart rate. 2336: RN was at bedside to give 1 sublingual nitroglycerin tablet on reevaluation his blood pressure dropped he became diaphoretic nauseous blood pressure 79/60, patient bradycardia down to approximately 43-45 sinus bradycardia placed in Trendelenburg position, 500 cc normal saline bolus ordered, 2345: Patient's blood pressure is now 113/75 heart rate is 63 O2 sat 94% on room air. IV is infusing without difficulty. Will give a total of 1 Liter NS, patient was sleeping lightly upon re-evaluation, HR did drop to 48 while sleeping, easily awakens, BP 109/75. Will anticipate discharge most likely after re-evaluation by oncoming provider Sagar Bravo. Discussed patient case in details with Dr. Bravo, lipase ordered, chest x-ray patient to be signed out pending chest x-ray lipase and reevaluation. Medical Records Medical records reviewed: Yes I reviewed the patient's medical records. Lab Data Lab results reviewed: Yes I reviewed the patient's lab results. Labs: Laboratory Tests Range/Units 02/20/25 02/20/25 21:40 23:20 WBC (4.4-10.8) 10^3/uL 9.39 RBC (4.36-5.78) 10^6/uL 4.52 Hgb (13.5-17.5) g/dL 15.0 Hct (40.0-50.0) % 41.3 MCV (80-95) fL 91 MCH (27.0-33.0) pg 33.2 H MCHC (32.0-36.0) % 36.3 H RDW (11.8-14.1) % 12.1 Plt Count (130-400) 10^3/uL 210 MPV (8.0-11.0) fL 10.4 PT (9.1-11.1) sec 10.7 INR (0.9-1.1) 1.1 APTT (20.6-30.2) sec 24.5 Sodium (136-145) mmol/L 142 Potassium (3.5-5.1) mmol/L 3.8 Chloride (98-107) mmol/L 104 Carbon Dioxide (21.0-32.0) mmol/L 29.3 Anion Gap (3-11) mmol/L 8.7 BUN (7-18) mg/dL 23 H Creatinine (0.70-1.30) mg/dL 1.2 Est GFR (CKD-EPI 2020) (mL/min/1.73m2) 61.52 Glucose (74-106) mg/dL 109 H Calcium (8.5-10.1) mg/dL 9.5 Magnesium (1.8-2.4) mg/dL 2.0 Total Bilirubin (0.2-1.0) mg/dL 0.7 AST (15-37) U/L 25 ALT (16-63) U/L 44 Alkaline Phosphatase (46-116) U/L 81 Troponin I (<or=76) ng/L 28 28 NT-Pro-B Natriuret Pep (<300) pg/mL 84 Total Protein (6.4-8.2) g/dL 7.6 Albumin (3.4-5.0) g/dL 4.2 PFSH All Active Problems Osteoarthritis of right knee (Acute) DEPO MEDROL: 01/24/2025; 07/16/24; 04/21/23 Chronic abdominal pain (Acute) Screening for colon cancer (Acute) Tubular adenoma of colon (Acute 09/05/17) Medical History Arm paresthesia, left Gastric polyps Gastritis and duodenitis Esophagitis determined by endoscopy GERD (gastroesophageal reflux disease) HTN (hypertension) Skin lesion of face Adrenal adenoma Hypercholesterolemia Eczema Fatigue Rotator cuff syndrome Surgical History H/O esophagogastroduodenoscopy (~10/02/18) ruptured achilles Vasectomy Tonsillectomy Colonoscopy - MAC (09/05/17) 04/2022 Social History Smoking/Tobacco Use Status: Former Tobacco Use Smoking risk assessment performed?: Yes Alcohol Intake: former Drug use: Never Substance use type: does not use Details: Patient reports sniffles this AM no other smptoms. Housing: house Do you feel safe at home: Yes Do you feel safe in your relationship?: Yes
[2025-02-20 22:09] LABS: INR 1.1 (0.9-1.1); PTT Activated 24.5 sec (20.6-30.2); Prothrombin Time 10.7 sec (9.1-11.1)
[2025-02-20 22:19] LABS: Troponin I 28 ng/L (<or=76)
[2025-02-20] MEDS: Aspirin 81 MG CHEW 243 MG CH (22:19)
[2025-02-20 22:21] LABS: ALT 44 U/L (16-63); AST 25 U/L (15-37); Albumin 4.2 g/dL (3.4-5.0); Alkaline Phosphatase 81 U/L (46-116); Anion Gap 8.7 mmol/L (3-11); BUN 23 mg/dL (7-18); Bilirubin, Total 0.7 mg/dL (0.2-1.0); CO2 29.3 mmol/L (21.0-32.0); Calcium 9.5 mg/dL (8.5-10.1); Chloride 104 mmol/L (98-107); Estimated GFR 61.52 (mL/min/1.73m2); Glucose 109 mg/dL (74-106); Magnesium 2.0 mg/dL (1.8-2.4); NT-proBNP 84 pg/mL (<300); Potassium 3.8 mmol/L (3.5-5.1); Sodium 142 mmol/L (136-145); Total Protein 7.6 g/dL (6.4-8.2)
--- NOTE | 2025-02-20 23:30 | RT.EKG_ITS ---
APPROVED REPORT Exam: Resting ECG Reason for Exam: repeat ekg Patient Location: E HR:55 bpm ECG Measurements Heart Rate 55 AXIS NH 221 P 68 QRSd 91 QRS 41 QT 443 T 65 QTc 422 Conclusion Sinus bradycardia...rate< 60 Prolonged NH interval...NH >220, V-rate 50- 90 Sinus bradycardia normal axis normal intervals no acute ischemic changes
[2025-02-20] MEDS: Normal Saline 500 ML IV (23:40)
[2025-02-20 23:42] LABS: Troponin I 28 ng/L (<or=76)
[2025-02-21] VITALS (34 sets, daily range): BP systolic 109–144; BP diastolic 67–86; PULSE 47–71; RESP 10–22; O2SAT 93–98
[2025-02-21] MEDS: Normal Saline 500 ML IV (00:09)
[2025-02-21 00:39] LABS: Lipase 31 U/L (<78)
--- NOTE | 2025-02-21 00:41 | DI.RAD_ITS ---
Exam(s) XR PORTABLE CHEST AP EXAM: XR PORTABLE CHEST AP CLINICAL HISTORY: Chest pain TECHNIQUE: 2D digital imaging was performed of the chest. One image was obtained. An AP view was obtained. COMPARISON: CR,XR XR CHEST 2V PA LATERAL from 09/14/2022 FINDINGS: MEDIASTINUM: Normal. HEART: Normal. PULMONARY VASCULATURE: Normal. LUNGS: Clear. PLEURAL SPACE: No pleural effusion or pneumothorax. BONE:Within normal limits for the patient's age. OTHER FINDINGS:Normal. IMPRESSION: 1. No acute pulmonary findings. 2. The preliminary [facility] report was reviewed. DATA REPOSITORY: RADIATION DOSE DELIVERED:
--- NOTE | 2025-02-21 01:03 | DI.VRAD_ITS ---
PROCEDURE INFORMATION: Exam: XR Chest Exam date and time: 02/21/2025 12:40 AM Age: 79 years old Clinical indication: Chest pressure; Chest pain TECHNIQUE: Imaging protocol: Radiologic exam of the chest. Views: 1 view. COMPARISON: CR XR CHEST 2V PA LATERAL 09/14/2022 8:47 PM FINDINGS: Lungs: The lungs are clear. No consolidative radiopacities. Pleural spaces: No pleural effusion. No pneumothorax. Heart/Mediastinum: The heart is normal size. Bones/joints: Unremarkable. IMPRESSION: No acute cardiopulmonary findings. Dictated and Authenticated by: Karla Dean MD. Orderin Alethea Faust MD
[2025-02-21 01:09] LABS: Troponin I 21 ng/L (<or=76)
--- NOTE | 2025-02-21 01:28 | ED.PROG_ITS ---
Date of service: 02/21/25 Time of Service: 01:28 Medical Decision Making On reassessment patient is feeling much better. Chest pressure is gone. Serial troponins including 3-hour troponin are all normal. Chest x-ray negative for acute process. Lipase normal. Patient feels well. No evidence to suggest ACS at this time. Do feel the patient is stable for discharge, but would benefit from close outpatient follow-up and outpatient stress testing. He has an appointment with his primary care provider in just a week. Will recommend close follow-up with this. Patient otherwise stable for discharge. Discussed red flags for which to return. I have extensively reviewed the treatment plan and discharge instructions with the patient and their family. I have addressed all patient concerns at this time. The patient and family was made aware of what symptoms to monitor for that would warrant a return to the emergency department. Discussed the plan with the patient and family, they demonstrate verbal understanding and agreement with our assessment and plan at this time. The documentation in this chart was dictated using [employer] dictation software. Please excuse any dictation errors. FINDINGS: Lungs: The lungs are clear. No consolidative radiopacities. Pleural spaces: No pleural effusion. No pneumothorax. Heart/Mediastinum: The heart is normal size. Bones/joints: Unremarkable. IMPRESSION: No acute cardiopulmonary findings. Thank you for allowing us to participate in the care of your patient. Dictated and Authenticated by: Karla Dean MD 02/21/2025 1:02 AM Eastern Time ([place] & [place]) Discharge Plan Disposition Patient Disposition: Home Condition: Good Discharge Details Clinical Impression: Chest discomfort Primary Care Provider: Letty Negrete ED Provider: Christianne Claire Home Meds and New Rx's Prescriptions: No Action magnesium oxide 200 mg magnesium tablet 200 mg PO DAILY amlodipine 2.5 mg tablet 2.5 mg PO DAILY pantoprazole 20 mg tablet,delayed release (DR/EC) 20 mg PO DAILY losartan 50 mg tablet 100 mg PO DAILY simethicone 80 mg Tablet 80 mg PO PRN PRN aspirin 81 mg capsule 81 mg PO DAILY atorvastatin [Lipitor] 10 mg tablet 10 mg PO DAILY Qty: 30 0RF Centrum Silver Men 1 EACH tablet 1 tab PO DAILY Discharge Instructions Instructions: Chest Pain, Adult ED Additional Instructions: At this time your workup has returned reassuring, with no evidence to suggest life-threatening heart attack or other significant abnormality. Please follow- up closely with your primary care provider next week to further discuss potential nonemergent outpatient stress testing. If you notice any worsening of your symptoms, or any new symptoms such as vomiting, diarrhea, fever, chills, shortness of breath, chest pain, numbness, weakness, or fainting , please return immediately to the emergency department for reevaluation. Please follow up with your primary care provider as soon as possible for reassessment and reevaluation. As always, it was a pleasure participating in your medical care today. Referrals: Letty Negrete [Primary Care Provider, Medicine]
== END 2025-02-21 01:53 | disposition home or self-care (01) ==
PROVIDERS: Student in an Organized Health Care Education/Training Program; Emergency Provider Registered Nurse Emergency; PCP Family Medicine
DX: R07.89 Other chest pain (principal); I10 Essential (primary) hypertension
CPT/HCPCS: 00123; 36415; 80053; 83690; 85027; 93005; 96360; 99284; 71045; 83735; 83880; 84484; 85610; 85730; 93010

== ENCOUNTER 2025-03-11 03:07 | Outpatient (CLI) | payer MEDICARE, BC, SELFPAY ==
--- NOTE | 2025-03-11 | DI.NM_ITS ---
APPROVED REPORT Exam: Exercise Treadmill Patient Location: Out-Patient Room/Bed: Stress Nurse: Kaitlin Escalera RN, Sho Weir RN Ordering Provider:MADDISON SPIVEY, Contact Number: [phone] BMI: 25.99 Baseline Rhythm: Sinus Bradycardia Indications: Chest pain Medical History Medical History: HLD, HTN, GERD, ED, overweight Cardiac Medications: amlodipine, atorvastatin, losartan, pantoprazole Allergies: lisinopril Cardiac Risk Factors: HTN, HLD, former smoker Previous Cardiac Procedures: None Pretest Chest Pain Characteristics: none Exercise History: Physically active Physical Disabilities: none Lung Sounds: clear Heart Sounds: Regular Stress Test Details Test: Exercise stress testing was performed using a Chavez protocol. Nuclear Acquisition: Rest Tc-99m/Stress Tc-99m 1 day Rest Isotope: Tc-99m Sestamibi. Dose: 10.0 Date: 03/11/2025 Injection Time: 0900 Stress Isotope: Tc-99m Sestamibi. Dose: 30.0 Date: 03/11/2025 Injection Time: 10:55 HR Resting HR Supine: 55 bpm Max Heart Rate (APMHR): 141 bpm Resting HR Standin bpm Target HR (85% APMHR): 120 bpm Max HR Achieved: 146 bpm % of APMHR: 104 Recovery HR: 83 bpm HR response to stress: Normal HR response to stress BP Resting BP Supine: 152/96 mmHg Resting BP Standin/92 mmHg Max BP: 190/80 mmHg Recovery BP: 172/80 mmHg BP response to stress: Normal blood pressure response to stress. ECG Resting ECG: Sinus Bradycardia Ectopy: none Stress ECG: Sinus Rhythm ST Change: No significant ST segment changes noted Arrhythmia: Occasional PVCs. rare PACs Recovery ECG: Sinus Rhythm Recovery ST Change: No significant ST segment changes noted Recovery Arrhythmia: rare PVCs, Rare PACs Clinical Reason for Termination: 100% maximum HR achieved Stress Symptoms: General Fatigue Exercise duration: 7 min49 sec Highest Stage Reached: Stage 3: 3.4 mph at 14% grade. Exercise capacity: 9.86 METs Angina Score: none Diaz Treadmill Score: 7.5 Rate Pressure Product: [id number] Stress ECG Conclusion 1. Resting electrocardiogram was normal 2. Patient exercised on the Chavez protocol and completed workload of 10 METS 3. Normal heart rate and blood pressure response to exercise. The patient achieved greater than 100% of predicted heart rate for age 4. There was no electrocardiographic evidence of myocardial ischemia 5. Sporadic PVCs were seen 6. See MPI report Diaz Treadmill Score is 7.5 which is Low risk. Stress Test Summary STAGE Time (mins) Speed (mph) Grade (%) HR BP SpO2 SYMPTOMS METS Supine 54 152/96 97 Standing 60 154/92 96 1 3 1.7 10 107 150/96 93 4.5 2 6 2.5 12 128 168/98 7 3 9 3.4 14 145 10 1 min recovery 117 190/80 3 min recovery 80 172/80 97 6 min recovery 78 140/88 97 Patient tolerated stress test well. Occasional PVCs and PACs. Tested terminated secondary to patient reaching 100% maximum HR. Ambulated of own accord with no complaints upon departure. MPI Conclusion Myocardial perfusion is normal. There is no ischemia or evidence of prior infarction
== END 2025-03-11 03:27 ==
LOC: DI 03:07
PROVIDERS: PCP Family Medicine; Visit Provider Internal Medicine Cardiovascular Disease
DX: R07.9 Chest pain, unspecified (principal)
CPT/HCPCS: 78452; 93016; 93018; 93017